=== PATIENT | female | born 1975 | race Caucasian/White ===

== ENCOUNTER → 2017-03-09 02:54 | Emergency (ER) | payer BC ==
[2017-03-09 03:24] VITALS: BP 126/69
[2017-03-09 04:01] LABS: Manual Entry Verification ROB0080; UR Preg Internal Control QC Line Present
[2017-03-09 05:09] LABS: Urine Bacteria Absent (Absent); Urine Bilirubin Negative (Negative); Urine Glucose Negative (Negative); Urine Nitrite Negative (Negative)
--- NOTE | 2017-03-09 05:50 | ED ---
Soren Bright Michael, scribed for Aldair Hanson MD on 03/09/17 at 0516 . GI/ HPI - HPI Summary HPI Summary: 42 y/o female comes to the ED presenting with vaginal pain that started 2 days ago after having intercourse. The pt reports that that pain has persistently worsened since the onset. The vaginal pain is described as burning. She also c/ o vaginal discharge that started one day ago. The pain is not alleviated with Monistat. - History of Current Complaint Chief Complaint: EDUrogenitalProblems Stated Complaint: VAG PAIN Hx Obtained From: Patient, Medical Records Onset/Duration: Started Days Ago, Still Present Timing: Constant Severity: Mild Current Severity: Moderate Pain Intensity: 8 Location of Pain: Suprapubic - vaginal Pain Characteristics: Burning Associated Signs and Symptoms: Positive: Other: - vaginal pain Additional Signs & Symptoms: Positive: Vaginal Discharge Aggravating Factor(s): Nothing Alleviating Factor(s): Nothing - Allergy/Home Medications Allergies/Adverse Reactions: Allergies Allergy/AdvReac Type Severity Reaction Status Date / Time Penicillins Allergy Unknown Verified 03/09/17 03:17 Reaction Details PMH/Surg Hx/FS Hx/Imm Hx Endocrine/Hematology History: Reports: Hx Thyroid Disease - hypothyroid Psychiatric History: Reports: Hx Anxiety - Cancer History Hx Chemotherapy: No Hx Radiation Therapy: No - Surgical History Surgery Procedure, Year, and Place: c section 1997 - Immunization History Date of Tetanus Vaccine: utd Date of Influenza Vaccine: utd Infectious Disease History: No Infectious Disease History: Reports: Hx Shingles - Age 22 yrs Denies: Hx Clostridium Difficile, Hx Hepatitis, Hx Human Immunodeficiency Virus (HIV), Hx of Known/Suspected MRSA, Hx Tuberculosis, Hx Known/Suspected VRE , Hx Known/Suspected VRSA, History Other Infectious Disease, Traveled Outside the [place] in Last 30 Days - Family History Known Family History: Positive: Hypertension, Diabetes - Social History Occupation: Employed Full-time Lives: With Family Alcohol Use: None Substance Use Type: Reports: None Smoking Status (MU): Light Every Day Tobacco Smoker Amount Used/How Often: 2-3 ciggeretts a day Review of Systems Negative: Fever Positive: other - vaginal pain. vaginal discharge. All Other Systems Reviewed And Are Negative: Yes Physical Exam Triage Information Reviewed: Yes Vital Signs On Initial Exam: Initial Vitals Temp Pulse Resp BP Pulse Ox 98.7 F 98 16 126/69 97 03/09/17 03:13 03/09/17 03:13 03/09/17 03:13 03/09/17 03:13 03/09/17 03:13 Vital Signs Reviewed: Yes Appearance: Positive: Well-Appearing, No Pain Distress Skin: Positive: Warm Head/Face: Positive: Normal Head/Face Inspection Eyes: Positive: DANA ENT: Positive: Hearing grossly normal Neck: Positive: Supple Respiratory/Lung Sounds: Positive: Clear to Auscultation, Breath Sounds Present Cardiovascular: Positive: RRR Abdomen Description: Positive: Nontender, Soft Bowel Sounds: Positive: Present Pelvic Exam: Positive: no cerv. motion tender, no masses, active bleeding, discharge - mild white, other - mild ext labial swelling Musculoskeletal: Positive: Strength/ROM Intact Neurological: Positive: Alert, Oriented to Person Place, Time - Oscar Coma Scale Coma Scale Total: 15 Diagnostics - Vital Signs Vital Signs Temp Pulse Resp BP Pulse Ox 03/09/17 03:13 98.7 F 98 16 126/69 97 - Laboratory Lab Results: Lab Results 03/09/17 Range/Units 03:30 Urine Color Yellow Urine Appearance Clear Urine pH 7.0 (5-9) Ur Specific Peak 1.023 (1.010-1.030) Urine Protein Negative (Negative) Urine Ketones Trace H (Negative) Urine Blood Negative (Negative) Urine Nitrate Negative (Negative) Urine Bilirubin Negative (Negative) Urine Urobilinogen Negative (Negative) Ur Leukocyte Esterase Trace H (Negative) Urine WBC (Auto) Trace(0-5/hpf) (Absent) Urine RBC (Auto) Absent (Absent) Ur Squamous Epith Cells Present H (Absent) Amorphous Crystals Present H (Absent) Urine Bacteria Absent (Absent) Urine Glucose Negative (Negative) Urine Ascorbic Acid Not Reportable Urine Test Negative (Negative) Lab Statement: Any lab studies that have been ordered have been reviewed, and results considered in the medical decision making process. GIGU Course/Dx - Diagnoses Provider Diagnoses: Vaginal discharge Discharge - Discharge Plan Condition: Stable Disposition: HOME Prescriptions: Clotrimazole 1% VAGINAL CREAM* [Gyne-Lotrimin 1% VAGINAL CREAM*] 1 applic VAGINAL DAILY #3 tube Patient Education Materials: Vaginal Discharge (ED) Referrals: Christin Mancia MD [Primary Care Provider] - Additional Instructions: Please follow up with Dr. Mancia within the next 2-3 days. The documentation as recorded by the morenaibSoren miller Michael accurately reflects the service I personally performed and the decisions made by me, Aldair Hanson MD.
== END | disposition home or self-care (01) ==
LOC: ED 02:54
DX: N89.8 Other specified noninflammatory disorders of vagina (principal); R10.2 Pelvic and perineal pain
CPT/HCPCS: 81003; 81015; 81025; 87086; 87480; 87491; 87510; 87591; 87661; 99282

== ENCOUNTER 2018-10-16 08:07 | Emergency (ER) | payer BC ==
[2018-10-16 08:31] VITALS: BP 139/88
--- NOTE | 2018-10-16 08:42 | UC ---
Nausea/Vomiting/Diarrhea HPI - HPI Summary HPI Summary: 43-year-old woman comes to clinic with a chief complaint of 3 days of nausea vomiting diarrhea. Has had some chills but no measured fevers at home. She gets abdominal cramping that then is relieved either by vomiting or diarrhea. No abdominal pain at this time. No blood seen in the vomit or the diarrhea. She felt like she was getting better but then she got nauseous again this morning started vomiting. She has not tried any [id number] nausea remedies. - History of Current Complaint Chief Complaint: UCGI Stated Complaint: VOMITING x3 DAYS Time Seen by Provider: 10/16/18 08:16 Hx Last Menstrual Period: HAS AN IUD, DOES NOT HAVE REG PERIODS Pain Intensity: 0 - Allergies/Home Medications Allergies/Adverse Reactions: Allergies Allergy/AdvReac Type Severity Reaction Status Date / Time Penicillins Allergy Unknown Unknown Verified 10/16/18 08:19 Reaction Details Home Medications: Home Medications Levonorgestrel (Iud) [Liletta IUD] 0 mcg 10/16/18 [History] PMH/Surg Hx/FS Hx/Imm Hx Previously Healthy: Yes Endocrine History: Hypothyroidism - Surgical History Surgical History: Yes Surgery Procedure, Year, and Place: c section 1997 - Family History Known Family History: Positive: Hypertension, Diabetes - Social History Alcohol Use: Rare Substance Use Type: None Smoking Status (MU): Light Every Day Tobacco Smoker Amount Used/How Often: 1 CIG A DAY Have You Smoked in the Last Year: Yes - Immunization History Most Recent Influenza Vaccination: august 2015 Review of Systems All Other Systems Reviewed And Are Negative: Yes Constitutional: Positive: Chills Skin: Positive: Negative Eyes: Positive: Negative ENT: Positive: Negative Respiratory: Positive: Negative Cardiovascular: Positive: Negative Gastrointestinal: Positive: Abdominal Pain, Vomiting, Diarrhea, Nausea Genitourinary: Positive: Negative Motor: Positive: Negative Neurovascular: Positive: Negative Musculoskeletal: Positive: Negative Neurological: Positive: Negative Psychological: Positive: Negative Is Patient Immunocompromised?: No Physical Exam Triage Information Reviewed: Yes Appearance: Well-Appearing, No Pain Distress, Well-Nourished Vital Signs: Initial Vital Signs Temp 97.6 F 10/16/18 08:21 Pulse 107 10/16/18 08:21 Resp 20 10/16/18 08:21 BP 139/88 12/19/18 08:21 Pulse Ox 97 10/16/18 08:21 Vital Signs Reviewed: Yes Eye Exam: Normal Eyes: Positive: Conjunctiva Clear ENT: Positive: Pharynx normal, TMs normal Neck exam: Normal Neck: Positive: Supple Respiratory: Positive: Lungs clear, Normal breath sounds, No respiratory distress Cardiovascular: Positive: RRR Abdomen Description: Positive: Nontender, Soft Bowel Sounds: Positive: Present Musculoskeletal Exam: Normal Musculoskeletal: Positive: Strength Intact, ROM Intact Neurological Exam: Normal Neurological: Positive: Alert, Muscle Tone Normal Psychological Exam: Normal Psychological: Positive: Age Appropriate Behavior Skin Exam: Normal Naus/Vom/Diarrhea Course/Dx - Course Course Of Treatment: Patient has no abdominal pain here in clinic today. The pain comes and goes and is cramping and is not localized. The plan at this time is to treat with Zofran and then if anything gets worse she needs to get reevaluated. Also she does not improved she needs to reevaluated. - Differential Dx/Diagnosis Provider Diagnosis: Nausea vomiting and diarrhea Condition At Discharge: Stable Discharge - Sign-Out/Discharge Documenting (check all that apply): Patient Departure All imaging exams completed and their final reports reviewed: No Studies - Discharge Plan Condition: Stable Disposition: HOME Prescriptions: Ondansetron ODT TAB* [Zofran 4 MG Odt TAB*] 4 mg PO Q6H PRN #10 tab.odt PRN Reason: Nausea Patient Education Materials: Acute Nausea and Vomiting (ED), Acute Diarrhea (ED ) Forms: *Work Release Referrals: Aly Calvin MD [Primary Care Provider] - Additional Instructions: FOLLOW UP WITH YOUR DOCTOR IF NOT COMPLETELY IMPROVED. GET RECHECKED FOR ANY WORSENING OF YOUR CONDITION; PAIN, FEVER, YOUR FEEL ILL, DEHYDRATION OR QUESTIONS OR CONCERNS. - Billing Disposition and Condition Condition: STABLE Disposition: Home
== END 2018-10-16 08:45 | disposition home or self-care (01) ==
LOC: UCCORT 08:07
DX: R11.2 Nausea with vomiting, unspecified (principal); R19.7 Diarrhea, unspecified; Z88.0 Allergy status to penicillin; F17.210 Nicotine dependence, cigarettes, uncomplicated
CPT/HCPCS: 99212; G0463

== ENCOUNTER 2018-10-21 14:27 | Emergency (ER) | payer BC ==
[2018-10-21 16:13] VITALS: BP 138/87
--- NOTE | 2018-10-21 16:42 | UC ---
Nausea/Vomiting/Diarrhea HPI - HPI Summary HPI Summary: OVER A WEEK OF NAUSEA, VOMITING AND WATERY STOOLS. HAD FEVER TMAX 103. OF THIS MORNING FEVER IS GONE. NO VOMITING FOR THE PAST 3 DAYS. STILL FEELS A BIT TIRED AND ACHY BUT OVERALL MUCH IMPROVED. WAS WONDERING ABOUT RETURN TO WORK. WAS ALSO WONDERING IF SHE COULD BE . HAS IUD BUT WOULD LIKE TO BE TESTED ANYWAY. - History of Current Complaint Chief Complaint: UCGeneralIllness Stated Complaint: NAUSEA,CHILLS,BODY ACHES Time Seen by Provider: 10/21/18 16:12 Hx Obtained From: Patient Hx Last Menstrual Period: HAS AN IUD, DOES NOT HAVE REG PERIODS Onset/Duration: Gradual Onset, Lasting Days, Still Present - BUT BETTER Timing: Constant Severity Initially: Moderate Severity Currently: Mild Pain Intensity: 0 Pain Scale Used: 0-10 Numeric Location: Diffuse Character: Cramping Aggravating Factor(s): Nothing Alleviating Factor(s): Spontaneous Resolution Nausea/Vomiting Presence: Nauseated, Vomiting Nausea/Vomiting Duration: 3-7 days Vomiting Characteristics: Nonbilious Diarrhea Presence: Yes Diarrhea Characteristics: Watery - Allergies/Home Medications Allergies/Adverse Reactions: Allergies Allergy/AdvReac Type Severity Reaction Status Date / Time Penicillins Allergy Unknown Unknown Verified 10/16/18 08:19 Reaction Details Home Medications: Home Medications Venlafaxine ER (NF) [Effexor ER (NF)] 150 mg PO DAILY 10/21/18 [History Confirmed 10/21/18] PMH/Surg Hx/FS Hx/Imm Hx Endocrine History: Hypothyroidism Psychological History: Anxiety - Surgical History Surgical History: Yes Surgery Procedure, Year, and Place: c section 1997 - Family History Known Family History: Positive: Hypertension, Diabetes - Social History Alcohol Use: Rare Substance Use Type: None Smoking Status (MU): Light Every Day Tobacco Smoker Amount Used/How Often: 1 CIG A DAY Have You Smoked in the Last Year: Yes - Immunization History Most Recent Influenza Vaccination: august 2015 Review of Systems All Other Systems Reviewed And Are Negative: Yes Constitutional: Positive: Fever, Fatigue ENT: Positive: Negative Respiratory: Positive: Negative Cardiovascular: Positive: Negative Gastrointestinal: Positive: Vomiting, Diarrhea, Nausea Genitourinary: Positive: Negative Physical Exam Triage Information Reviewed: Yes Appearance: Well-Appearing, No Pain Distress, Well-Nourished Vital Signs: Initial Vital Signs Temp 98.3 F 10/21/18 16:11 Pulse 108 10/21/18 16:11 Resp 18 10/21/18 16:11 BP 138/87 10/21/18 16:11 Pulse Ox 97 10/21/18 16:11 Laboratory Tests 10/21/18 10/21/18 16:26 16:28 POC Urine Color Yellow POC Urine Clarity Clear POC Urine pH 7.5 POC Ur Specif [place] 1.015 POC Urine Protein Negative POC Ur Glucose (UA) Negative POC Urine Ketones Negative POC Urine Blood Negative POC Urine Nitrite Negative POC Urine Bilirubin Negative POC Urine Urobilinogen 0.2 POC U Leukocyte Esteras Negative POC Ur Test Negative Vital Signs Reviewed: Yes Eyes: Positive: Conjunctiva Clear ENT: Positive: Hearing grossly normal, Pharynx normal, TMs normal Neck: Positive: Supple, Nontender, No Lymphadenopathy Respiratory Exam: Normal Cardiovascular Exam: Normal Abdomen Description: Positive: Nontender, Soft Musculoskeletal: Positive: No Edema Neurological: Positive: Alert Psychological: Positive: Age Appropriate Behavior Skin: Negative: Rashes Naus/Vom/Diarrhea Course/Dx - Differential Dx/Diagnosis Provider Diagnosis: Gastroenteritis Condition At Discharge: Stable Discharge - Sign-Out/Discharge Documenting (check all that apply): Patient Departure All imaging exams completed and their final reports reviewed: No Studies - Discharge Plan Condition: Stable Disposition: HOME Patient Education Materials: Gastroenteritis (ED) Forms: *Work Release Referrals: Aly Calvin MD [Primary Care Provider] - If Needed Additional Instructions: YOUR SYMPTOMS ARE IMPROVING. CONTINUE CONSERVATIVE MANAGEMENT. BE SURE TO STAY WELL-HYDRATED. YOU CAN CONTINUE TO USE THE ZOFRAN NEEDED FOR NAUSEA. NO FURTHER INTERVENTION INDICATED TODAY. - Billing Disposition and Condition Condition: STABLE Disposition: Home
== END 2018-10-21 16:50 | disposition home or self-care (01) ==
LOC: UCCORT 14:27
DX: K52.9 Noninfective gastroenteritis and colitis, unspecified (principal); Z88.0 Allergy status to penicillin; F41.9 Anxiety disorder, unspecified; F17.210 Nicotine dependence, cigarettes, uncomplicated
CPT/HCPCS: 81003; 84702; 99212; G0463

== ENCOUNTER 2018-10-28 21:32 | Emergency (ER) | payer BC ==
[2018-10-28] MEDS ORDERED: Albuterol/Ipratropium NEB.SOL* Albuterol 2.5 MG/Ipratropium 0.5 MG 3 ML INH ONE (21:34)
--- OUTSIDE RECORDS SUMMARY | 2018-10-28 21:39 | XMS REPORT | Continuity of Care Document ---
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 Aly Calvin MD Primary Care Physician Unavailable Payers Type Date Identification Numbers Payment Provider Subscriber Policy Number: [id number] [facility] Paul Phil FOSTER Group Name: [facility] [address] [address] PayID: [id number] [place] [address] Advance Directives Description No Information Available Problems Date Description Provider Status Onset: 12/19/2011 Single major depressive episode Anamaria Barros FNP Active Onset: 12/19/2011 Anxiety state Anamaria Barros FNP Active Onset: 12/19/2011 Benign essential hypertension Anamaria Barros FNP Active Onset: 12/19/2011 Hypothyroidism Anamaria Barros FNP Active Onset: 12/19/2011 Obesity Anamaria Barros FNP Active Onset: 05/08/2018 Malaise and fatigue Jeb Fernandez MD Active Onset: 05/08/2018 Nausea and vomiting Jeb Fernandez MD Active Family History Date Family Member(s) Problem(s) Comments General Non Contributory Father Diabetes Mellitus Type 2 Mother bariatric surgery Mother pelvic cancer (?uterine) Mother Diabetes Mellitus Type 2 First Son mild autism First Son tourette's First Brother bariatric surgery Social History Type Date Description Comments Sex Unknown Marital Status Lives With Lives With Son Home Environment Lives With FAMILY Diet Healthy, Well Balanced Occupation Currently Working Tobacco Use Start: Unknown End: Former Cigarette Smoker Smoked for less Unknown 1-5 Cigarettes Daily than 6 years Smoking Status Reviewed: 10/28/18 Former Cigarette Smoker Smoked for less 1-5 Cigarettes Daily than 6 years Smokeless Tobacco Never Used Smokeless Tobacco ETOH Use Occasionally consumes alcohol Tobacco Use Start: Unknown End: Patient is a former Unknown smoker Recreational Drug Use Never Used Drugs Exercise Type/Frequency Does not exercise Allergies, Adverse Reactions, Alerts Date Description Reaction Status Severity Comments 02/11/2015 Penicillin Active 01/05/2012 Cats Active Medications Medication Date Status Form Strength Qnty SIG Indications Ordering Provider Benzonatate 10/28 Active Capsules 200mg 30cap take 1 J20.9 Kheti, s capsule 3 MD Juve times daily as needed for a cough. Omeprazole 05/08 Active Capsules 20mg 90cap 1 tab by R11.2 s mouth every MD Jim day every morning Vitamin D 06/25 Active Capsules [id number] 12cap Take One Kushal (Ergocalciferol) s Capsule By MD Ping Mouth Once Every Week Effexor XR 03/15 Active Caps ER 150mg 90cap Take One 24HR s Capsule By Sim Waller Every M.D. 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 03/03 se pack Ventolin HFA 02/26 Hx Aerosol 108(90Bas 18gm 2 puffs J20.9 e) every 4 Christin - mcg/Act hours as M.DAreli 03/08 needed for cough and wheeze Fluconazole 03/09 Hx Tablets 150mg 1tabs 1 by mouth by Christin queen, - repeat in M.D. 02/26 one week not improved Medroxyprogesteron 03/01 Hx Tablets 10mg 10tab 1 tab by N92.1 paul Mancia s mouth every Christin, - daily for M.D. 02/26 Work 02/20 Hx Cassidy february Jolene return to [facility] - work with MD 02/21 restriction s. Work 02/16 Hx Cassidy february Jolene not work [facility] - 02/18/16. MD 02/21 reevaluate on 02/21/16. Vitamin D 10/19 Hx Capsules [id number] 12cap take one Kushal, (Ergocalciferol) s capsule by MD Ping - mouth every Effexor XR 02/11 Hx Caps ER 75mg 180ca 2 by mouth Jolene 24HR ps every day Daniela Zamudio MD 03/15 Ergocalciferol 11/17 Hx Capsules [id number] 12cap 1 po q week Lamas, s Clarissa Zamudio MD 10/19 Effexor XR 03/13 Hx Caps ER 37.5mg 90cap 1 by mouth Jolene 24HR s every day Daniela Zamudio MD 02/11 Cetirizine HCL Hx Tablets 10mg 90tab 1 po qd Jolene, s Daniela Zamudio MD 03/15 Xanax Hx Tablets 0.5mg 1 by mouth Unknown / morning of - procedure 02/12 one hour before starting; february repeat x 1 Trazodone HCL 0000 Hx Tablets 100mg 30tab 1 by mouth Jolene, /0000 s at bedtime Daniela Zamudio MD 02/20 Clonazepam 0000 Hx Tablets 0.5mg 30tab 1 by mouth Jolene, /0000 s three times Daniela - a day. ref MD 02/26 # [id number] Immunizations CPT Code Status Date Vaccine Lot # [id number] Given 07/20/2016 Tdap injection [id number] Vital Signs Date Vital Result Comment 10/28/2018 11:30am BP Systolic Sitting Left Arm 128 mmHg BP Diastolic Sitting Left Arm 88 mmHg Heart Rate 120 /min Respiratory Rate 18 /min Height 61 inches 5'1" Weight 261.00 lb BMI (Body Mass Index) 49.3 kg/m2 BSA (Body Surface Area) 2.12 m2 [place] body weight in kilograms 48 kg O2 % BldC Oximetry 97 % 10/24/2018 3:16pm BP Systolic 140 mmHg BP Diastolic 84 mmHg Body Temperature 98.9 F Heart Rate 100 /min Respiratory Rate 18 /min Height 61 inches 5'1" Weight 247.00 lb BMI (Body Mass Index) 46.7 kg/m2 BSA (Body Surface Area) 2.07 m2 [place] body weight in kilograms 48 kg O2 % BldC Oximetry 96 % 05/08/2018 11:17am BP Systolic Sitting Left Arm 142 mmHg BP Diastolic Sitting Left Arm 80 mmHg Heart Rate 82 /min Respiratory Rate 18 /min Height 61 inches 5'1" [place] body weight in kilograms 48 kg O2 % BldC Oximetry 98 % 02/26/2018 10:03am BP Systolic Sitting Right Arm 122 mmHg BP Diastolic Sitting Right Arm 70 mmHg Body Temperature 98.4 F Heart Rate 105 /min Weight 239.25 lb O2 % BldC Oximetry 95 % 03/01/2017 8:39am BP Systolic Sitting Left Arm 120 mmHg BP Diastolic Sitting Left Arm 86 mmHg Body Temperature 99.4 F Heart Rate 97 /min Weight 198.25 lb O2 % BldC Oximetry 99 % 01/16/2017 4:46pm BP Systolic Sitting Left Arm 154 mmHg BP Diastolic Sitting Left Arm 82 mmHg Height 64 inches 5'4" Weight 201.00 lb BMI (Body Mass Index) 34.5 kg/m2 BSA (Body Surface Area) 1.96 m2 [place] body weight in kilograms 54 kg 08/29/2016 10:36am BP Systolic 132 mmHg BP Diastolic 90 mmHg BP Systolic Sitting Left Arm 138 mmHg BP Diastolic Sitting Left Arm 92 mmHg 02/21/2016 2:13pm BP Systolic Sitting Left Arm 114 mmHg BP Diastolic Sitting Left Arm 72 mmHg Weight 214.00 lb Last Menstrual Period [id number] 02/17/2016 6:39pm BP Systolic 148 mmHg BP Diastolic 92 mmHg Height 62 inches 5'2" Weight 214.00 lb BMI (Body Mass Index) 39.1 kg/m2 BSA (Body Surface Area) 1.97 m2 02/10/2016 11:13am BP Systolic Sitting Left Arm 138 mmHg BP Diastolic Sitting Left Arm 76 mmHg Heart Rate 72 /min Respiratory Rate 19 /min Height 62 inches 5'2" Weight 214.00 lb BMI (Body Mass Index) 39.1 kg/m2 BSA (Body Surface Area) 1.97 m2 Last Menstrual Period [id number] 11/11/2015 3:52pm BP Systolic 140 mmHg BP Diastolic 78 mmHg Height 62 inches 5'2" Weight 217.38 lb BMI (Body Mass Index) 39.8 kg/m2 BSA (Body Surface Area) 1.98 m2 Last Menstrual Period [id number] 06/17/2015 4:35pm BP Systolic 102 mmHg BP Diastolic 62 mmHg Height 64 inches 5'4" Weight 197.50 lb BMI (Body Mass Index) 33.9 kg/m2 BSA (Body Surface Area) 1.95 m2 03/15/2015 4:15pm BP Systolic 126 mmHg BP Diastolic 74 mmHg Height 63 inches 5'3" Weight 218.00 lb BMI (Body Mass Index) 38.6 kg/m2 BSA (Body Surface Area) 2.01 m2 02/11/2015 10:43am BP Systolic Sitting Left Arm 124 mmHg BP Diastolic Sitting Left Arm 80 mmHg Height 64.5 inches 5'4.50" Weight 222.00 lb BMI (Body Mass Index) 37.5 kg/m2 BSA (Body Surface Area) 2.06 m2 11/17/2014 3:48pm BP Systolic 130 mmHg BP Diastolic 74 mmHg Height 63 inches 5'3" Weight 270.00 lb 09/24/2013 6:06pm BP Systolic 138 mmHg BP Diastolic 80 mmHg Height 63 inches 5'3" Weight 255.00 lb 04/11/2013 1:11pm BP Systolic 118 mmHg BP Diastolic 78 mmHg Heart Rate 72 /min Height 63 inches 5'3" Weight 249.00 lb 03/13/2013 11:33am BP Systolic 102 mmHg BP Diastolic 72 mmHg Height 63 inches 5'3" Weight 254.00 lb 08/14/2012 6:01pm BP Systolic 128 mmHg BP Diastolic 78 mmHg Height 63 inches 5'3" Weight 248.00 lb 01/05/2012 10:57am BP Systolic 110 mmHg BP Diastolic 78 mmHg Height 63 inches 5'3" Weight 238.00 lb Results Test Date Facility Test Result H/L Range Note Comprehensive Metabolic 10/24/2018 [facility] Glucose 84 mg/dL N 74-106 [address] [place] [address] [phone] BUN 14 mg/dL N 7-18 Creatinine 0.7 mg/dL N 0.6-1.3 Glom Filtration Rate, Estimate >60 mL/min >60 If >60 mL/min >60 2 BUN/Creat 20.0 ratio Sodium 137 mmol/L N 136-145 Potassium 4.1 mmol/L N 3.5-5.1 Chloride 104 mmol/L N 98-107 Carbon Dioxide 27 mmol/L N 21-32 Anion Gap 6 mEq/L Low 8-16 Calcium 8.5 mg/dL N 8.5-10.1 Total Protein 7.0 g/dL N 6.4-8.2 Albumin 3.4 g/dL N 3.4-5.0 Globulin 3.6 g/dL N 1.9-4.3 Alb/Glob 0.9 ratio Bilirubin,Total 0.2 mg/dL N 0.2-1.0 Sgot/Ast 15 U/L N 15-37 SGPT/Alt 37 U/L N 12-78 Alkaline Phosphatase 48 U/L N 45-117 CBC W/Automated Diff 10/24/2018 [facility] White Blood 9.5 K/uL N 3.1-10.[address] [place] [address] [phone] Red Blood Count 5.00 M/uL N 3.90-5.40 Hemoglobin 13.9 gm/dL N 11.6-15.8 Hematocrit 42.2 % N 36.0-46.1 Mean Cell Volume 84.4 fl N 80.9-99.0 Mean Corpuscular HGB 27.8 pg N 25.9-32.7 Mean Corpuscular HGB Conc 32.9 g/dL N 30.8-34.3 Platelet Count 263 K/uL N 155-360 Red Cell Distri Width SD 43.7 fl N 36-47 Red Cell Distri Width %CV 14.5 % High 11.7-14.4 Mean Platelet Volume 10.8 fL N 8.9-12.4 Neut% 62.3 % N 40.4-72.8 Lymph % 25.2 % N 20.0-42.0 Hall % 10.2 % N 4.3-13.2 Eo% 2.1 % N 0.0-6.6 Bas% 0.2 % N 0.0-1.1 Neut# 5.90 K/uL N 1.8-7.0 Lymph # 2.39 K/uL N 1.0-4.0 Hall # 0.97 K/uL High 0.3-0.9 Eos # 0.20 K/uL N 0.0-0.5 Baso # 0.02 K/uL N 0.0-0.1 Laboratory test 10/24/2018 [facility] C-Reactive 7.0 mg/L High <3.0 finding [address] [place] [address] [phone] Ua RFX Micro & 10/24/2018 [facility] Urine Color YELLOW Yellow 3 Culture II [address] [place] [address] [phone] Urine Clarity CLEAR Clear Urine Glucose - Dipstick NEGATIVE mg/dL Negative Urine Bilirubin - Dipstick NEGATIVE Negative Urine Ketone NEGATIVE mg/dL Negative Urine Specific [place] 1.010 N 1.010-1.030 Urine Blood LARGE Abnormal Negative Urine PH 7.5 N 6.5-7.5 Urine Protein - Dipstick TRACE mg/dL Negative Urine Urobilinogen - Dipstick 1.0 E.U./dL N 0.2-1.0 Urine Nitrite - Dipstick NEGATIVE Negative Urine Leuk Esterase NEGATIVE Negative Urine RBC 2-5 rbc/hpf 0-2 Urine WBC 0-2 wbc/hpf 0-7 Urine Epithelial Cells VERY FEW /lpf None Seen Urine Bacteria VERY FEW None Seen Source: URINE, CLEAN CAT <SEE NOTE> 4 Urine Culture 10/24/2018 [facility] Urine Culture URETHRAL RAMIRO [address] [place] [address] [phone] Quantity 10,000 - 50,000 <SEE NOTE> 5 Laboratory test 10/21/2018 [facility] Poc , Negative Negative 6 finding [phone] Urine Poc Urinalysis 10/21/2018 [facility] Poc Glucose, Negative Negative [phone] Urine Poc Bilirubin, Urine Negative Negative Poc Ketone, Urine Negative Negative Poc Specific [place], Urine 1.015 N 1.010-1.030 Poc Blood, Urine Negative Negative Poc pH, Urine 7.5 N 5-9 Poc Protein, Urine Negative Negative Poc Urobilinogen, Urine 0.2 Negative Poc Nitrite, Urine Negative Negative Poc Leukocytes, Urine Negative Negative Poc Color, Urine Yellow Poc Clarity, Urine Clear 7 Laboratory 07/25/2017 [facility] Urine HCG NEGATIVE Negative 8, 9 test finding [address] (Qualitative) [place], [place] [id number] [phone] Ua Routine 07/17/2017 [facility] Urine Color ORANGE Yellow [address] [place], [place] [id number] [phone] Urine Clarity CLEAR Clear Urine Glucose - Dipstick NEGATIVE mg/dL Negative Urine Bilirubin - Dipstick NEGATIVE Negative Urine Ketone NEGATIVE mg/dL Negative Urine Specific [place] 1.020 N 1.010-1.030 Urine Blood LARGE Abnormal Negative Urine PH 6.0 Low 6.5-7.5 Urine Protein - Dipstick NEGATIVE mg/dL Negative Urine Urobilinogen - Dipstick 0.2 E.U./dL N 0.2-1.0 Urine Nitrite - Dipstick NEGATIVE Negative Urine Leuk Esterase NEGATIVE Negative Urine RBC >50 rbc/hpf High 0-2 Urine WBC NONE SEEN wbc/hpf 0-7 Urine Epithelial Cells VERY FEW /lpf None Seen Urine Uric Acid Crystals FEW None Seen Source: URINE, CLEAN CAT <SEE NOTE> 11 Urine Culture 07/17/2017 [facility] Urine Culture NO GROWTH: [address] FINAL <[place] [address] NOTE> [phone] Laboratory test 03/09/2017 [facility] Urine Culture SEE RESULT 13 finding [phone] BELOW Laboratory test 03/09/2017 [facility] Gardnerella/Yea SEE RESULT 14 finding [phone] st: Vaginal Dna BELOW GC/Chlamydia 03/09/2017 [facility] Chlamydia Negative N Negative Amplified Rna [phone] trachomatis Rna Neisseria gonorrhoeae (GC) Rna Negative N Negative Laboratory test 03/09/2017 [facility] Trichomonas Negative N Negative 15 finding [phone] vaginalis Rna Laboratory test 03/09/2017 [facility] Urine Negative N Negative 16 finding [phone] Urinalysis 03/09/2017 [facility] Urine Color Yellow N Profile [phone] Urine Appearance Clear N Urine Specific [place] 1.023 N 1.010-1.030 Urine pH 7.0 N 5-9 Urine Urobilinogen Negative N Negative Urine Ketones Trace Abnormal Negative Urine Protein Negative N Negative Urine Leukocytes Trace Abnormal Negative Urine Blood Negative N Negative Urine Nitrite Negative N Negative Urine Bilirubin Negative N Negative Urine Glucose Negative N Negative Urine White Blood Cell Trace(0-5/hpf) N Absent Urine Red Blood Cell Absent N Absent Urine Bacteria Absent N Absent Urine Squamous Epithelial Cell Present Abnormal Absent Urine Amorphous Crystals Present Abnormal Absent CBS W/Automated 03/01/2017 [facility] White Blood 6.7 K/uL N 3.1-10.7 [address] Count [place], [place] [id number] [phone] Red Blood Count 4.88 M/uL N 3.90-5.40 Hemoglobin 13.9 gm/dL N 11.6-15.8 Hematocrit 42.5 % N 36.0-46.1 Mean Cell Volume 87.1 fl N 80.9-99.0 Mean Corpuscular HGB 28.5 pg N 25.9-32.7 Mean Corpuscular HGB Conc 32.7 g/dL N 30.8-34.3 Platelet Count 246 K/uL N 150-400 Red Cell Distri Width SD 45.3 fl N 3-47 Red Cell Distri Width %CV 14.5 % High 11.7-14.4 Mean Platelet Volume 11.5 fL N 8.9-12.4 Neut% 66.8 % N 40.4-72.8 Lymph % 24.9 % N 20.0-42.0 Hall % 6.4 % N 4.3-13.2 Eo% 1.5 % N 0.0-6.6 Bas% 0.4 % N 0.0-1.1 Neut# 4.46 K/uL N 1.8-7.0 Lymph # 1.66 K/uL N 1.0-4.0 Hall # 0.43 K/uL N 0.3-0.9 Eos # 0.10 K/uL N 0.0-0.5 Baso # 0.03 K/uL N 0.0-0.1 Laboratory test finding 03/01/2017 [facility] FSH 14.6 mIU/mL [address] [place], [place] [id number] [phone] Luteinizing Hormone 5.5 mIU/mL 19 Protime 03/01/2017 [facility] Protime 12.6 seconds N 12.0-14.[address] [place] [address] [phone] Inr 1.0 N 0.9-1.1 20 Laboratory test 03/01/2017 [facility] Act Partial 27.4 seconds N 23.4-35.[address] Thrombo Time [place], [place] [id number] [phone] Prolactin 6.8 ng/mL 21 Testosterone, Women/Child 25 ng/dL . 22 HPV High Risk 03/01/2017 [facility] HPV High Results on [address] [place] [place] [address] [phone] Comprehensive 01/16/2017 [facility] Glucose 84 mg/dL N 74-1 25 Metabolic Panel [address] [place] [address] [phone] BUN 13 mg/dL N 7-18 Creatinine 0.7 mg/dL N 0.6-1.3 Glom Filtration Rate, Estimate >60 mL/min >60 If >60 mL/min >60 26 BUN/Creat 18.5 ratio Sodium 141 mmol/L N 136-145 Potassium 3.6 mmol/L N 3.5-5.1 Chloride 104 mmol/L N 98-107 Carbon Dioxide 28 mmol/L N 21-32 Anion Gap 9 mEq/L N 8-16 Calcium 8.7 mg/dL N 8.5-10.1 Total Protein 7.3 g/dL N 6.4-8.2 Albumin 4.0 g/dL N 3.4-5.0 Globulin 3.3 g/dL N 1.9-4.3 Alb/Glob 1.2 ratio Bilirubin,Total 0.3 mg/dL N 0.2-1.0 Sgot/Ast 11 U/L Low 15-37 27 SGPT/Alt 27 U/L N 12-78 Alkaline Phosphatase 44 U/L Low 45-117 Reflex add FT3? Y Reflex add FT4? Y Glycohemoglobin A1c 01/16/2017 [facility] Glycohemoglobin 5.5 % N 4.2-6.[address] (A1c) [place] [address] [phone] eAG 111 mg/dL LDL Cholesterol Profile 01/16/2017 [facility] Cholesterol 194 mg/dL <[address] [place], [place] [id number] [phone] Triglycerides 87 mg/dL <150 30 HDL Cholesterol 59 mg/dL >40 31 LDL-Cholesterol 118 mg/dL < 100 32 Reflex add FT3? Y Reflex add FT4? Y TSH Reflex FT4 01/16/2017 [facility] Thyroid Stim 1.10 uIU/mL N 0.30-4.20 And/Or FT3 [address] Hormone [place], [place] [id number] [phone] Reflex add FT3? Y Reflex add FT4? Y Laboratory test 01/16/2017 [facility] Vitamin 55.4 30.0-100.0 [address] D,25-Hydroxy ng/mL [place], [place] [address] [phone] Antibody Detection-Hiv1/2 SCRN Nonreactive Nonreactive 34 Hepatitis C 01/16/2017 [facility] Hepatitis C Nonreactive Nonreactive Antibody [address] [place] [address] [phone] Signal/Cutoff ratio < 0.02 <0.80 35 Laboratory test 02/10/2016 [facility] Cytology Interface SEE RESULT 36 finding [phone] Order BELOW Laboratory test 02/10/2016 [facility] Cytopathology Results on [address] Cervix/[place] [address] [phone] Laboratory test 11/11/2015 [facility] Thyroid Stim 1.59 uIU/mL 0.36- finding [address] Hormone 3.74 [place] [address] [phone] Basic Metabolic 11/11/2015 [facility] Glucose 91 mg/dL 74-[address] [place] [address] [phone] BUN 14 mg/dL 7-18 Creatinine 0.6 mg/dL 0.6-1.3 Glom Filtration Rate, Estimate >60 mL/min >60 If >60 mL/min >60 38 BUN/Creat 23.3 ratio Sodium 139 mmol/L 136-145 Potassium 3.7 mmol/L 3.5-5.1 Chloride 105 mmol/L 98-107 Carbon Dioxide 30 mmol/L 21-32 Anion Gap 4 mEq/L Low 8-16 Calcium 8.3 mg/dL Low 8.5-10.1 Glycohemoglobin A1c 11/11/2015 [facility] Glycohemoglobin 5.2 % 4.2-6.[address] (A1c) [place], [place] [id number] [phone] eAG 103 mg/dL CBC Auto Diff 02/10/2015 [facility] White Blood 9.4 10^3/uL N 4.8-10.8 [phone] Count Red Blood Count 5.12 10^6/uL N 4.0-5.4 Hemoglobin 14.4 g/dL N 12.0-16.0 Hematocrit 43 % N 35-47 Mean Corpuscular Volume 85 fL N 80-97 Mean Corpuscular Hemoglobin 28 pg N 27-31 Mean Corpuscular HGB Conc 33 g/dL N 31-36 Red Cell Distribution Width 16 % High 10.5-15 Platelet Count 221 10^3/uL N 150-450 Mean Platelet Volume 10 um3 N 7.4-10.4 Abs Neutrophils 6.8 10^3/uL N 1.5-7.7 Abs Lymphocytes 1.9 10^3/uL N 1.0-4.8 Abs Monocytes 0.5 10^3/uL N 0-0.8 Abs Eosinophils 0.1 10^3/uL N 0-0.6 Abs Basophils 0 10^3/uL N 0-0.2 Abs Nucleated RBC 0.01 10^3/uL N Granulocyte % 72.9 % N 38-83 Lymphocyte % 20.2 % Low 25-47 Monocyte % 5.8 % N 1-9 Eosinophil % 0.8 % N 0-6 Basophil % 0.3 % N 0-2 Nucleated Red Blood Cells % 0.1 N Comp Metabolic Panel 02/10/2015 [facility] Sodium 137 mmol/L N 133-145 [phone] Potassium 4.5 mmol/L N 3.5-5.0 Chloride 101 mmol/L N 101-111 Co2 Carbon Dioxide 29 mmol/L N 22-32 Anion Gap 7 mmol/L N 2-11 Glucose 92 mg/dL N 70-100 Blood Urea Nitrogen 7 mg/dL N 6-24 Creatinine 0.66 mg/dL N 0.51-0.95 BUN/Creatinine Ratio 10.6 N 8-20 Calcium 10.0 mg/dL N 8.6-10.3 Total Protein 6.8 g/dL N 6.4-8.9 Albumin 4.4 g/dL N 3.2-5.2 Globulin 2.4 g/dL N 2-4 Albumin/Globulin Ratio 1.8 N 1-3 Total Bilirubin 0.40 mg/dL N 0.2-1.0 Alkaline Phosphatase 41 U/L N 34-104 Alt 15 U/L N 7-52 Ast 11 U/L Low 13-39 Egfr Non- 98.2 N >60 Egfr 126.3 N >60 40 Laboratory test 02/10/2015 [facility] TSH (Thyroid 1.35 N 0.34-5.60 finding [phone] Stimulating IU/mL Horm) Laboratory test 11/18/2014 N2N/CCD Import ThinPrep Pap: See Note 41 finding Cervix/Endocx Laboratory test 11/13/2014 N2N/CCD Import Thyroid Stim 2.11 0.36-3.74 finding Hormone uIU/mL Vitamin D,25-Hydroxy 18.6 ng/mL Low 30.0-100.0 42 Basic Metabolic Panel 11/13/2014 N2N/CCD Import Anion Gap 9 mEq/L 8-16 BUN 12 mg/dL 7-18 BUN/Creat 17.1 ratio Calcium 8.9 mg/dL 8.5-10.1 Carbon Dioxide 28 mmol/L 21-32 Chloride 105 mmol/L 98-107 Creatinine 0.7 mg/dL 0.6-1.3 Glom Filtration Rate, Estimate >60 mL/min >60 Glucose 106 mg/dL 74-106 If >60 mL/min >60 43 Potassium 4.1 mmol/L 3.5-5.1 Sodium 138 mmol/L 136-145 CBC 11/13/2014 N2N/CCD Import Hematocrit 42.0 % 36.0-46.1 Hemoglobin 13.5 gm/dL 11.6-15.8 Mean Cell Volume 83.8 fl 80.9-99.0 Mean Corpuscular HGB 26.9 pg 25.9-32.7 Mean Corpuscular HGB Conc 32.1 g/dL 30.8-34.3 Mean Platelet Volume 11.3 fL 8.9-12.4 Platelet Count 264 K/uL 155-360 Red Blood Count 5.01 M/uL 3.90-5.40 Red Cell Distri Width %CV 14.8 % High 11.7-14.4 White Blood Count 8.2 K/uL 3.1-10.7 Glycohemoglobin A1c 11/13/2014 N2N/[facility] Import Glycohemoglobin (A1c) 6.1 % 4.2-6.3 44 eAG 128 mg/dL Liver Function Tests 11/13/2014 [employer]/[facility] Import Alb/Glob 1.0 ratio Albumin 3.6 g/dL 3.4-5.0 Alkaline Phosphatase 54 U/L 45-117 Bilirubin,Direct < 0.1 mg/dL 0.0-0.2 Bilirubin,Indirect 0.3 mg/dL 0.0-0.9 Bilirubin,Total 0.4 mg/dL 0.2-1.0 Globulin 3.5 g/dL 1.9-4.3 SGPT/Alt 39 U/L 12-78 Sgot/Ast 13 U/L Low 15-37 45 Total Protein 7.1 g/dL 6.4-8.2 LDL Cholesterol Profile 11/13/2014 [facility] Import Cholesterol 153 mg/dL < 200 46 HDL Cholesterol 32 mg/dL > 40 47 LDL-Cholesterol 87 mg/dL < 100 48 Triglycerides 170 mg/dL < 150 49 LDL Cholesterol Profile 01/02/2014 [facility] Import Cholesterol 158 mg/dL 120-200 HDL Cholesterol 33 mg/dL 29-83 LDL-Cholesterol 88 mg/dL 62-185 Triglycerides 187 mg/dL 16-231 Comprehensive Metabolic Panel 01/02/2014 [facility] Import Alb/Glob 0.9 ratio Albumin 3.6 g/dL 3.5-5.0 Alkaline Phosphatase 52 U/L 50-136 Anion Gap 9 mEq/L 8-16 BUN 13 mg/dL 5-23 BUN/Creat 18.5 ratio Bilirubin,Total 0.4 mg/dL 0.2-1.2 Calcium 9.3 mg/dL 8.5-10.1 Carbon Dioxide 29 mEq/L 18-29 Chloride 107 mmol/L 98-107 Creatinine 0.7 mg/dL 0.5-1.4 Globulin 3.8 g/dL 1.9-4.3 Glom Filtration Rate, Estimate >60 mL/min >60 Glucose 82 mg/dL 76-115 If >60 mL/min >60 50 Potassium 4.3 mmol/L 3.5-5.1 SGPT/Alt 30 U/L 30-65 Sgot/Ast 10 U/L Low 16-40 Sodium 141 mmol/L 136-145 Total Protein 7.4 g/dL 6.3-8.0 CBC W/Automated Diff 01/02/2014 N2N/CCD Import Bas% 0.3 % 0.0-1.1 Baso # 0.02 K/uL 0.0-0.1 Eo% 2.1 % 0.0-6.6 Eos # 0.16 K/uL 0.0-0.5 Hematocrit 42.1 % 36.0-46.1 Hemoglobin 13.6 gm/dL 11.6-15.8 Lymph # 2.30 K/uL 0.8-3.4 Lymph % 29.5 % 17.0-46.1 Mean Cell Volume 83.5 fl 80.9-99.0 Mean Corpuscular HGB 27.0 pg 25.9-32.7 Mean Corpuscular HGB Conc 32.3 g/dL 30.8-34.3 Mean Platelet Volume 10.9 fL 8.9-12.4 Hall # 0.50 K/uL 0.3-0.9 Hall % 6.4 % 4.3-13.2 Neut# 4.81 K/uL 1.0-7.0 Neut% 61.7 % 40.4-72.8 Platelet Count 232 K/uL 155-360 Red Blood Count 5.04 M/uL 3.90-5.40 Red Cell Distri Width %CV 14.9 % High 11.7-14.4 Red Cell Distri Width SD 44.9 fl 3-47 White Blood Count 7.8 K/uL 3.1-10.7 Laboratory test 01/02/2014 N2N/CCD Import Thyroid Stim 4.29 uIU/mL 0.49- 4.67 finding Hormone Vitamin D, 25 03/13/2013 N2N/CCD Import 25-Hydroxy 23 ng/mL 51 Hydroxy Vitamin D Total 25-Hydroxy Vitamin D2 <4.0 ng/mL 25-Hydroxy Vitamin D3 23 ng/mL Laboratory test 03/13/2013 N2N/CCD Import TSH (Thyroid 1.72 miu/mL 0.34- 5.60 finding Stimulating Horm) Vitamin B12 385 pg/mL 180-914 Laboratory test 08/12/2012 N2N/CCD Import Thyroid Stim 2.16 uIU/mL 0.49- 4.67 finding Hormone Basic Metabolic 08/12/2012 N2N/CCD Import Anion Gap 13 mEq/L 8-16 Panel BUN 23 mg/dL 5-23 BUN/Creat 32.8 ratio Calcium 8.7 mg/dL 8.5-10.1 Carbon Dioxide 24 mEq/L 18-29 Chloride 107 mmol/L 98-107 Creatinine 0.7 mg/dL 0.5-1.4 Glom Filtration Rate, Estimate >60 mL/min >60 Glucose 100 mg/dL 76-115 If >60 mL/min >60 52 Potassium 4.1 mmol/L 3.5-5.1 Sodium 140 mmol/L 136-145 LDL Cholesterol Profile 08/12/2012 N2N/CCD Import Cholesterol 167 mg/dL 120-200 HDL Cholesterol 33 mg/dL 29-83 LDL-Cholesterol 102 mg/dL 62-185 Triglycerides 158 mg/dL 16-231 Laboratory test 01/04/2012 N2N/CCD Import Hemoglobin A1c 5.6 % Less Than 6.0 53 finding TSH 3.80 MIU/ML 0.34-5.60 CBC Auto Diff 12/15/2011 N2N/CCD Import Abs Basophils 0 0-0.2 Abs Eosinophils 0 0-0.6 Abs Lymphs 2.3 1.0-4.8 Abs Mononuclear 0.5 0-0.8 Absolute Neutrophil Count 5.7 1.5-7.7 Basophil % 0.2 % 0-2 Eosinophil % 0.3 % 0-6 Gran % 66.3 % 38-83 Hematocrit 39 % 35-47 Hemoglobin 13.7 g/dL 12.0-16.0 Lymph % 27.2 % 25-47 Mean Corpuscular HGB Cone 35 g/dL 32-36 Mean Corpuscular Hemoglob 29 pg 27-31 Mean Corpuscular Volume 82 um3 79-97 Mean Platelet Volume 9.7 um3 7.4-10.4 Mononuclear % 6.0 % 1-9 Platelet Count 233 CUMM 150-450 Red Cell Count 4.77 CUMM 4.2-5.4 Redcell Distribution WDTH 14 % 10.5-15 White Blood Count 8.5 CUMM 4.8-10.8 Comp Metabolic Panel 12/15/2011 N2N/CCD Import Albumin 3.9 GM/DL 3.6- 5.4 Albumin/Globulin Ratio 1.6 1-3 Alkaline Phosphatase 49 U/L 30-110 Alt (SGPT) 21 U/L 14-54 Anion Gap 8.0 mmol/L 2-11 54 Ast (Sgot) 16 U/L 12-42 BUN 10 mg/dL 6-24 BUN/Creatinine Ratio 14.3 8-20 Bilirubin Total 0.6 mg/dL 0.4-1.5 55 Calcium 9.4 mg/dL 8.1-9.9 Chloride 103 mmol/L 101-111 Co2 (Carbon Dioxide) 29.0 mmol/L 22-32 Creatinine 0.7 mg/dL 0.50-1.40 Globulin 2.5 GM/DL 2-4 Glucose 96 mg/dL 70-100 One Over Creatinine 1.42 Potassium 4.6 mmol/L 3.5-5.0 Sodium 140 mmol/L 135-145 Total Protein 6.4 GM/DL 6.2-8.1 eGFR 120.4 > 60 56 eGFR Non- 93.6 > 60 Lipid Profile 12/15/2011 N2N/CCD Import Cholesterol 194 mg/dL Less Than 57 (Trig/Chol/HDL) 200 Cholesterol/HDL Ratio 4.97 AVERAGE High 1-4.44 High Density Lipoprotein 39 mg/dL Low 40-60 58 Low Density Lipoprotein 121 mg/dL High Less Than 100 59 Triglyceride 169 mg/dL 40-200 Liver Function 12/15/2011 N2N/CCD Import Bilirubin Direct 0.0 mg/dL Low 0.1-0.5 Panel Indirect Bilirubin (See Note) mg/dL 0.3-1.0 60 1 R11.2 2 Note: Persistent reduction for 3 months or more in an eGFR <60 mL/min/1.73 m2 defines CKD. Patients with eGFR values >/=60 mL/min/1.73 m2 may also have CKD if evidence of persistent proteinuria is present. The original MDRD equation for estimated GFR is not valid for patients less than 18 years of age. Additional information may be found at www.kdoqi.org. 3 R11.2 R11.2, M54.6 ' OK - was having vaginal bleeding that day. 4 URINE, CLEAN CATCH 5 10,000 - 50,000 CFU/mL 6 Terminal Gauger Supervisor: [id number] Test Disclaimer: Positive bacteria, red blood cells, white blood cells, early , low specific gravity, and other factors may cause false positive or negative results. It is recommended to retest unexpected results within 24 to 72 hours with a serum test when applicable. If is still suspected, please repeat test after 48 to 72 hours. 7 Terminal Gauger Supervisor: [id number] CONSULT 07/23/17 10;30 22752 9 FIRST MORNING SPECIMENS GENERALLY CONTAIN THE HIGHEST CONCENTRATION OF HCG AND ARE RECOMMENDED FOR EARLY DETECTION OF . Method: Quidel QuickVue One-Step Immunoassay 10 N92.0 11 URINE, CLEAN CATCH 12 NO GROWTH: FINAL REPORT 13 SEE RESULT BELOW Name: CASSIDY ANN : [address]: Aldair Hanson MD Acct: [id number] Unit: [id number] AGE: 42 Location: ED Re03/09/17 SEX: F Status: REG ER SPEC: [id number] RANDY: 03/09/17-[address] [facility] [address]: Aldair Hanson MD REQ: [id number] RECD: 03/09/17 STATUS: ALEJA MCNULTY DR: Christin Mancia MD _ SOURCE: URINE [facility]: ORDERED: Urine Culture Procedure Result Reported Site Urine Culture Final 03/10/17- 820 ML No Growth (<1,000 CFU/mL) * ML - MAIN LAB ([facility]) . END OF REPORT * ML=Testing performed at Main Lab DEPARTMENT OF PATHOLOGY, [address] [place] [address] Arya Villafuerte M.D. Director BRE # [id number] 14 SEE RESULT BELOW Name: CASSIDY ANN : [address]: Aldair Hanson MD Acct: [id number] Unit: [id number] AGE: 42 Location: ED Re03/09/17 SEX: F Status: REG ER SPEC: [id number] RANDY: 03/09/[address]: Aldair Hanson MD REQ: [id number] RECD: 03/09/17 STATUS: COMP [facility] DR: Christin Mancia MD _ SOURCE: VAGINAL SPDESC: ORDERED: Soto,Yeast DNA Procedure Result Reported Site Gardnerella/Yeast: Vaginal DNA Final 03/09/17- 1203 ML Organism 1 Negative Gardnerella Organism 2 POSITIVE ALANA The presence of G. vaginalis, although suggestive, is not diagnostic for bacterial vaginosis. Results should be interpreted in conjuction with other clinical and laboratory data available. Women with vaginal discharge should be evaluated for risk factors of cervicitis and pelvic inflammatory disease, toxic shock syndrome (S.aureus), and if present, evaluated for organisms not included in this assay such as N. gonorrhoeae, C. trachomatis, Mobiluncus, Mycoplasma and/or Prevotella. Mixed infections may occur. The performance of this test on patient specimens collected during or immediately after antimicrobial therapy is unknown. The presence or absence of Alana species, or G. vaginalis cannot be used as a test for therapeutic success or failure. * ML - MAIN LAB ([facility]) . END OF REPORT * ML=Testing performed at Main Lab DEPARTMENT OF PATHOLOGY, [address] [place] [address] Arya Villafuerte M.D. Director [facility] # [id number] 15 GC/Chlamydia Source?: Endocervical Trichomonas Source: Affirm Vaginal Swab 16 If is still suspected, please repeat test after 48 to 72 hours. This test detects intact HCG only and is indicated for the early detection of . 17 Z00.00 N92.1 UPDATED DX CODES 18 NORMALLY MENSTRUATING FEMALES: Follicular Phase:............... 2.3-12.6 mIU/mL Mid-Cycle Peak:................. 5.2-17.5 mIU/mL Luteal Phase:................... 1.7-9.5 mIU/mL POSTMENOPAUSAL FEMALES: On menopausal hormone therapy (MHT)... 5.9-72.8 mIU/mL Not on MHT ........................... 0.7-10.8 mIU/mL 19 Pubertal adults FEMALES, menstrual cycle phases: Follicular Phase............. 1.9-12.8 mIU/mL Mid-Cycle Peak............... 22.2-76.1 mIU/mL Luteal Phase................. 0.6-13.5 mIU/mL Post-meonpausal FEMALE: On menopausal hormone therapy (MHT) ... 1.1-52.4 mIU/mL Not on MHT ............................ 8.6-61.8 mIU/mL 20 THERAPEUTIC INR RANGE: 2.0 - 3.0 DVT, Pulmonary embolus, prophylaxis against venous thrombosis or systemic embolization in high risk patients. 2.5 - 3.5 Mechanical heart valves 21 Non- ..... 2.2-30.3 ng/mL ......... 8.1-347.6 ng/mL Post-Menopausal .. 0.7-31.5 ng/mL 22 Reference Range: Adult Females Premenopausal 10 - 55 Postmenopausal 7 - 40 Performed at: ES - [facility] Endocrinology [address] [place] [id number] Press Operator Assistant: Paul Amin MD, Phone: [phone] 23 N64.1 UPDATED DX CODES 24 Hard copy of report to be sent by mail Report may be viewed in Clinical Review, or in PCI under Medical Record Forms 25 I10 E55.9 Z11.4 Z11.59 26 Note: Persistent reduction for 3 months or more in an eGFR <60 mL/min/1.73 m2 defines CKD. Patients with eGFR values >/=60 mL/min/1.73 m2 may also have CKD if evidence of persistent proteinuria is present. The original MDRD equation for estimated GFR is not valid for patients less than 18 years of age. Additional information may be found at www.kdoqi.org. 27 Values below the stated reference ranges of AST and ALT can be seen in normal populations. Clinical correlation is suggested. 28 Elevated levels of HbA1c suggest the need for more aggressive treatment of glycemia. The [place] Diabetes Association recommends that a primary goal of therapy should be a HbA1c of <7% and that physicians should re-evaluate the treatment regimen in patients with HbA1c values consistently >8%. 29 Reference Guidelines*: Desirable: ........... < 200 mg/dL Borderline High: ..... 200-239 mg/dL High: ................ >=240 mg/dL * The National Cholesterol Education Program (NCEP) 30 Reference Guidelines*: Normal: ............. < 150 mg/dL Borderline High: .... 150-199 mg/dL High: ............... 200-499 mg/dL Very High: .......... > 500 mg/dL * Source: National Cholesterol Education Program (NCEP) 31 Reference Guidelines*: Low HDL: ..... < 40 mg/dL Normal: ..... 40-60 mg/dL Desirable: ... > 60 mg/dL *The National Cholesterol Education Program(NCEP) 32 Reference Guidelines*: Optimal:........... <100 mg/dL Near Optimal....... 100-129 mg/dL Borderline High.... 130-159 mg/dL High............... 160-189 mg/dL Very High.......... >=190 mg/dL * Source: National Cholesterol Education Program (NCEP) 33 Vitamin D deficiency has been defined by the [place] [employer] and an Endocrine Society practice guideline as a level of serum 25-OH vitamin D less than 20 ng/mL (1,2). The Endocrine Society went on to further define vitamin D insufficiency as a level between 21 and 29 ng/mL (2). 1. IOM ([place] [employer]). 2010. Dietary reference intakes for calcium and D. [place]: The National Academies Press. 2. Amanda VALLADARES, Lilibeth DENNIS, Michelle BEGUM, et al. Evaluation, treatment, and prevention of vitamin D deficiency: an Endocrine Society clinical practice guideline. JCEM. 2010; 96(7):1911-30. Performed at: [address], [place] [id number] Press Operator Assistant: Ratna Wolfe MD, Phone: [phone] 34 NOTE: A NON-REACTIVE RESULT INDICATES THAT HIV-1 AND HIV-2 ANTIBODIES HAVE NOT BEEN FOUND IN THIS PATIENT SPECIMEN. A NON-REACTIVE RESULT, HOWEVER, DOES NOT PRECLUDE PREVIOUS EXPOSURE OF INFECTION WITH HIV. * [place] STATE LAW PROHIBITS THE REDISCLOSURE OF THIS RESULT * * TO ANY UNAUTHORIZED CONSTITUTION PARTY. * 35 Antibodies to HCV not detected; does not exclude early acute HCV infection. 36 SEE RESULT BELOW Name: CASSIDY ANN : [address]: Daniela Fernández MD Acct: [id number] Unit: [id number] AGE: 41 Location: [facility] Re02/10/16 SEX: F Status: REG REF SPEC: [id number] RANDY: 02/10/16-[address] [facility] [address]: Daniela Fernández MD REQ: [id number] RECD: 02/11/16-1110 STATUS: MICHELLE MCNULTY DR: [facility], Lab _ ORDERED: IMAGE ANALYSIS FINAL DIAGNOSIS Negative for Intraepithelial lesion or Malignancy A. Ectocervical/Endocervical Specimen Adequacy: Satisfactory of evaluation Transformation zone component identified Patient Information: HPV: Thin Layer Pap Test w/reflex to high risk HPV RNA testing when ASCUS Actual Specimen Date: 02/10/16 Last Menstrual Date: 01/17/16 ?: N Post Menopausal?: N Signed (signature on file) MARICEL Murillo (ASCP) 02/13 1312 This Pap test was evaluated with the assistance of the AnagranPrep Test Imaging System. Due to cytologic findings at the nutrition faculty member microscope, comprehensive manual rescreening by a Chief Medical Officer may be required. The Pap Smear is a screening test designed to aid in the detection of premalignant and malignant conditions of the uterine cervix. It is not a diagnostic procedure and should not be used as the sole means of detecting cervical cancer. Both false- positive and false- negative reports do occur. Depending on your risk status, a Pap smear should be obtained and evaluated every 1-3 years. END OF REPORT * ML=Testing performed at Main Lab DEPARTMENT OF PATHOLOGY, [facility], [place], [place] [address] Arya Villafuerte M.D. Director [facility] # [id number] 37 Report may be viewed in PCI: Medical Record Forms -> LAB-SAWMILLING OPERATOR Testing referred to: [place] [address] [address] [facility] * [place] [address] Ph.#. [phone] Note: Persistent reduction for 3 months or more in an eGFR <60 mL/min/1.73 m2 defines CKD. Patients with eGFR values >/=60 mL/min/1.73 m2 may also have CKD if evidence of persistent proteinuria is present. The original MDRD equation for estimated GFR is not valid for patients less than 18 years of age. Additional information may be found at www.kdoqi.org. 39 Elevated levels of HbA1c suggest the need for more aggressive treatment of glycemia. The [place] Diabetes Association recommends that a primary goal of therapy should be a HbA1c of <7% and that physicians should re-evaluate the treatment regimen in patients with HbA1c values consistently >8%. 40 Because ethnic data is not always readily available, this report includes an eGFR for both -Americans and non- Americans. The National Kidney Disease Education Program (NKDEP) does not endorse the use of the MDRD equation for patients that are not between the ages of 18 and 70, are , have extremes of body size, muscle mass, or nutritional status, or are non- or non-. According to the National Kidney Foundation, irrespective of diagnosis, the stage of the disease is based on the level of kidney function: Stage Description GFR(mL/min/1.73 m(2)) 1 Kidney damage with normal or decreased GFR 90 2 Kidney damage with mild decrease in GFR 60-89 3 Moderate decrease in GFR 30-59 4 Severe decrease in GFR 15-29 5 Kidney failure <15 (or dialysis) 41 CYTOLOGY SCREENER Screened by: Janett HAMILTON(ASCP) PAP: FINAL REPORT SPECIMEN ADEQUACY: SPECIMEN SATISFACTORY FOR INTERPRETATION ADEQUATE ENDOCERVICAL/TRANSFORMATION ZONE NOTED INTERPRETATION: NEGATIVE FOR INTRAEPITHELIAL LESION OR MALIGNANCY COMMENT: THINPREP PREPARED PAP SLIDE # Prepared in the Cytology laboratory from the ThinPrep sample is 1 ThinPrep smear. PAP ACCESSI QUESTIONNAIRE 11/07 PERTINENT CLINICAL HISTORY FOR PAP (SAWMILLING OPERATOR) CYTOLOGY (Check all that apply): ? N Post ? N Menopause? N LMP date: 11/04 Last Pap: at [facility]? Y Abnormal Pap? If Yes, date: If patient had related surgical procedure: Related Therapy: Neuroradiologist Patient Number: [id number] Significant Clinical History: V72.31 ===== DISCLAIMER: The Pap smear is a screening test and not a diagnostic procedure. False negative and false positive results can and do occur for a number of reasons. Regular screening provides an aid in detecting treatable cervical abnormalities, but should not be used as the only means for detecting cervical dysplasia and carcinoma. ----- Signed Electronically signed JANETT 11/20/14 1311 ----- 42 Vitamin D deficiency has been defined by the [place] [employer] and an Endocrine Society practice guideline as a level of serum 25-OH vitamin D less than 20 ng/mL (1,2). The Endocrine Society went on to further define vitamin D insufficiency as a level between 21 and 29 ng/mL (2). 1. IOM ([place] [employer]). 2010. Dietary reference intakes for calcium and D. [place]: The National Academies Press. 2. Amanda MF, Lilibeth DENNIS, Michelle BEGUM, et al. Evaluation, treatment, and prevention of vitamin D deficiency: an Endocrine Society clinical practice guideline. JCEM. 2010; 96(7):1911-30. Performed at: [facility] [address] [id number] Press Operator Assistant: Ratna Wolfe MD, Phone: [phone] 43 Note: Persistent reduction for 3 months or more in an eGFR <60 mL/min/1.73 m2 defines CKD. Patients with eGFR values >/=60 mL/min/1.73 m2 may also have CKD if evidence of persistent proteinuria is present. The original MDRD equation for estimated GFR is not valid for patients less than 18 years of age. Additional information may be found at www.kdoqi.org. 44 Elevated levels of HbA1c suggest the need for more aggressive treatment of glycemia. The [place] Diabetes Association recommends that a primary goal of therapy should be a HbA1c of <7% and that physicians should re-evaluate the treatment regimen in patients with HbA1c values consistently >8%. 45 Values below the stated reference ranges of AST and ALT can be seen in normal populations. Clinical correlation is suggested. 46 Reference Guidelines*: Desirable: ........... < 200 mg/dL Borderline High: ..... 200-239 mg/dL High: ................ >=240 mg/dL * The National Cholesterol Education Program (NCEP) 47 Reference Guidelines*: Low HDL: ..... < 40 mg/dL Normal: ..... 40-60 mg/dL Desirable: ... > 60 mg/dL *The National Cholesterol Education Program(NCEP) 48 Reference Guidelines*: Optimal:........... <100 mg/dL Near Optimal....... 100-129 mg/dL Borderline High.... 130-159 mg/dL High............... 160-189 mg/dL Very High.......... >=190 mg/dL * Source: National Cholesterol Education Program ( NCEP) 49 Reference Guidelines*: Normal: ............. < 150 mg/dL Borderline High: .... 150-199 mg/dL High: ............... 200-499 mg/dL Very High: .......... > 500 mg/dL * Source: National Cholesterol Education Program (NCEP) 50 Note: Persistent reduction for 3 months or more in an eGFR <60 mL/min/1.73 m2 defines CKD. Patients with eGFR values >/=60 mL/min/1.73 m2 may also have CKD if evidence of persistent proteinuria is present. The original MDRD equation for estimated GFR is not valid for patients less than 18 years of age. Additional information may be found at www.kdoqi.org. 51 Interpretation: 10-24 (mild to moderate deficiency) -- REFERENCE VALUE -- 25-HYDROXY D TOTAL (D2+D3) Optimum levels in the normal population are 25-80 Test Performed by: [place] [address] Director Process: Eulalio Patel III, M.D. 52 Note: Persistent reduction for 3 months or more in an eGFR <60 mL/min/1.73 m2 defines CKD. Patients with eGFR values >/=60 mL/min/1.73 m2 may also have CKD if evidence of persistent proteinuria is present. The original MDRD equation for estimated GFR is not valid for patients less than 18 years of age. Additional information may be found at www.kdoqi.org. 53 THERAPEUTIC TARGET FOR THE TREATMENT OF DIABETES MELLITUS PATIENTS IS <7% HBA1C, AND IN SELECTIVE PATIENTS <6.0%. PLEASE REFER TO [place] [employer]ATION DIABETIC CARE GUIDELINES FOR FURTHER INFORMATION. 54 Anion gap measurement may be of limited value in the presence of any alkalosis, especially in a combined acid base disorder. . 55 A metabolite of Naproxen, O-desmethylnaproxen, has been shown to interfere with the Jendrassik-Bolckow method for measuring total bilirubin. Samples from patients who have taken Naproxen have shown spurious elevation in total bilirubin levels. 56 Because ethnic data is not always readily available, this report includes an eGFR for both -Americans and non- Americans. The National Kidney Disease Education Program (NKDEP) does not endorse the use of the MDRD equation for patients that are not between the ages of 18 and 70, are , have extremes of body size, muscle mass, or nutritional status, or are non- or non-. According to the National Kidney Foundation, irrespective of diagnosis, the stage of the disease is based on the level of kidney function: Stage Description GFR(mL/min/1.73 m(2)) 1 Kidney damage with normal or decreased GFR 90 2 Kidney damage with mild decrease in GFR 60- 89 3 Moderate decrease in GFR 30-59 4 Severe decrease in GFR 15-29 5 Kidney failure <15 (or dialysis) 57 CHOLESTEROL INTERPRETATION: Desirable: Less than 200 MG/DL Borderline-High Risk: 200-239 MG/DL High-Risk: 240 MG/DL and over 58 HDL INTERPRETATION: Undesirable: High Risk: Less than 40 MG/DL Desirable: Low Risk: Greater than 60 MG/DL 59 LDL INTERPRETATION: Low Risk Optimal Level: LDL Less than 100 MG/DL Near or Above Optimal: LDL 100-129 MG/DL Borderline High Risk: LDL 130-159 MG/DL High Risk : LDL 160-189 MG/DL Very High Risk: LDL Greater than 189 MG/DL 60 UNABLE TO CALCULATE IND.BILI D.BILI IS <0.1 Please note updated reference range, effective 05/19/10 Procedures Date Code Description Status 01/29/2017 [id number] Mammogram Completed 11/16/2015 [id number] Mammogram Completed Encounters Type Date Location Provider Dx Diagnosis Office Visit 10/24/2018 Family Medicine Mandy Petit, R11.2 Nausea with 3:15p Jorge Domingo MD, PHD vomiting, unspecified R53.83 Other fatigue R68.83 Chills (without fever) M54.6 Pain in thoracic spine Office Visit 05/08/2018 11:15a APOLINAR Fernandez MD R11.2 Nausea with vomiting , unspecified R53.83 Other fatigue Office Visit 02/26/2018 10:00a Family Medicine Karly Geronimo, J20.9 Acute bronchitis, Keith KENYON PA unspecified Office Visit 03/01/2017 8:30a Family Medicine Christin Mancia, Z00.01 Encounter for Keith KENYON M.D. general adult medical exam w abnormal findings N92.1 Excessive and frequent menstruation with irregular cycle E03.9 Hypothyroidism, unspecified E55.9 Vitamin D deficiency, unspecified Office Visit 01/16/2017 4:45p Family Medicine Christin Mancia, I10 Essential (primary) Keith KENYON M.D. hypertension F41.9 Anxiety disorder, unspecified E55.9 Vitamin D deficiency, unspecified E03.9 Hypothyroidism, unspecified Office Visit 08/29/2016 10:30a Family Medicine Sara Wallace, I10 Essential (primary) [place] KOSTAS PNP-BC, DIRECTOR OF PHARMACY, hypertension Ibclc Office Visit 02/21/2016 2:00p Family Medicine Jolene F41.9 Anxiety disorder, Keith Suarez MD unspecified Office Visit 02/17/2016 3:45p Family Paul Fernández F41.9 Anxiety disorder, Keith Suarez MD unspecified Office Visit 02/10/2016 11:00a Family Paul Fernández F41.9 Anxiety disorder, Keith Suarez MD unspecified Z00.00 Encntr for general adult medical exam w/o abnormal findings Z12.4 Encounter for screening for malignant neoplasm of cervix Office Visit 11/11/2015 3:45p Family Fernández I10 Essential Medicine Keith Suarez MD (primary) RD hypertension Office Visit 06/17/2015 4:15p Family Fernández 401.1 Hypertension Medicine Keith Suarez MD Benign RD Office Visit 03/15/2015 4:15p Family Fernández 300.00 Anxiety State Medicine Keith Suarez MD Unspec RD Office Visit 02/11/2015 10:45a Family Fernández 300.00 Anxiety State Medicine Keith Suarez MD Unspec RD Plan of Treatment 10/28/2018 - Juve Garcia MDJ20.9 Acute bronchitis, unspecifiedNew Medication: Benzonatate 200 mg - take 1 capsule 3 times daily as needed for a cough.Comments :Your cough is likely viral in nature. I do not think you need a chest x-ray now. Things which may help including Vitamin C supplement, honey tessie tea, and salt gargles. I am sending in a script to your pharmacy for as needed benzonatate. If symptoms get worse please call me immediately. Follow up asneeded.Follow up:As needed.
--- OUTSIDE RECORDS SUMMARY | 2018-10-28 21:39 | XMS REPORT | Continuity of Care Document ---
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 Aly Calvin MD Primary Care Physician Unavailable Payers Type Date Identification Numbers Payment Provider Subscriber Policy Number: [id number] [facility] Js Paul Phil FOSTER Group Name: [facility] [address] [address] PayID: [id number] [place] [address] Advance Directives Description No Information Available Problems [...] Family Member(s) Problem(s) Comments General Non Contributory Mother bariatric surgery Mother pelvic cancer (?uterine) First Son mild autism First Son tourette's First Brother bariatric surgery Social History Type Date Description Comments Sex Unknown Marital Status Lives With Lives With Son Home Environment Lives With FAMILY Diet Healthy, Well Balanced Occupation Currently Working Smokeless Tobacco Never Used Smokeless Tobacco ETOH Use Occasionally consumes alcohol Tobacco Use Start: Unknown End: Patient is a former smoker Unknown Recreational Drug Use Never Used Drugs Smoking Status Reviewed: 02/26/18 Patient is a former smoker Allergies, Adverse Reactions, Alerts Date Description Reaction Status Severity Comments 02/11/2015 Penicillin Active 01/05/2012 Cats Active Medications Medication Date Status Form Strength Qnty SIG Indications Ordering Provider Omeprazole 05/08 Active Capsules 20mg 90cap 1 tab by R11.2 s mouth every MD Jim day every morning Vitamin D 06/25 Active Capsules [id number] 12cap Take One Kushal (Ergocalciferol) s Capsule By MD Ping Mouth Once Every Week Effexor XR 03/15 Active Caps ER 150mg 90cap Take One Blanche 24HR s Capsule By Sim Waller Every M.D. Day Levothyroxine 01/05 Active Tablets 88mcg 90tab Take One Kushal Sodium s Tablet By MD Ping Mouth Every Day Maximum Daily Dose=1 Tablet Telmisartan 07/28 Active Tablets 40mg 90tab take one I10 [place], s tablet by Sara mouth every PNP-BC, day [employer], Ibclc Azithromycin 02/26 Hx Tablets 250mg 6tabs 2 tab by J20.9 mouth day 1 Christin, - 1 tab by Stephanie 03/03 mouth 2-5 Methylprednisolone 02/26 Hx TBPK 4mg 21uni take J20.9 ts tablets as Christin, - directed-do M.D. 03/03 se pack Ventolin HFA 02/26 Hx Aerosol 108(90Bas 18gm 2 puffs J20.9 e) every 4 Christin, - mcg/Act hours as M.D. 03/08 needed for cough and wheeze Fluconazole 03/09 Hx Tablets 150mg 1tabs 1 by mouth by Christin queen, - repeat in M.D. 02/26 one week if not improved Medroxyprogesteron 03/01 Hx Tablets 10mg 10tab 1 tab by N92.1 paul Mancia Acetate s mouth every Christin, - daily for M.D. 02/26 bleeding Work 02/20 Hx Cassidy Ratliffley return to Daniela - work with MD 02/21 restriction s. Work 02/16 Hx Cassidy february Jolene not work Daniela Zamudio 02/18/16. MD 02/21 reevaluate on 02/21/16. Vitamin D 10/19 Hx Capsules [id number] 12cap take one Kushal, (Ergocalciferol) s capsule by MD Ping - mouth every Effexor XR 02/11 Hx Caps ER 75mg 180ca 2 by mouth Jolene 24HR ps every day Daniela Zamudio MD 03/15 Ergocalciferol 11/17 Hx Capsules [id number] 12cap 1 po q week Lamas, s Clarissa Zamudio MD 10/19 Effexor XR 03/13 Hx Caps ER 37.5mg 90cap 1 by mouth Jolene 24HR s every day Daniela Zamudio MD 02/11 Cetirizine HCL 0000 Hx Tablets 10mg 90tab 1 po qd Jolene, / s Daniela Zamudio MD 03/15 Xanax 0000 Hx Tablets 0.5mg 1 by mouth Unknown /0000 morning of - procedure 02/12 one hour before starting; february repeat x 1 Trazodone HCL 00/00 Hx Tablets 100mg 30tab 1 by mouth Jolene, /0000 s at bedtime Daniela Zamudio MD 02/20 Clonazepam 0000 Hx Tablets 0.5mg 30tab 1 by mouth Jolene, /0000 s three times Daniela Zamudio a day. ref MD 02/26 # [id number] Immunizations CPT Code Status Date Vaccine Lot # [id number] Given 07/20/2016 Tdap injection [id number] Vital Signs Date Vital Result Comment 10/24/2018 3:16pm BP Systolic 140 mmHg BP Diastolic 84 mmHg Body Temperature 98.9 F Heart Rate 100 /min Respiratory Rate 18 /min Height 61 inches 5'1" Weight 247.00 lb BMI (Body Mass Index) 46.7 kg/m2 BSA (Body Surface Area) 2.07 m2 [place] body weight in kilograms 48 kg O2 % BldC Oximetry 96 % 05/08/2018 11:17am BP Systolic Sitting Left Arm 142 mmHg BP Diastolic Sitting Left Arm 80 mmHg Heart Rate 82 /min Respiratory Rate 18 /min Height 61 inches 5'1" [place] body weight in kilograms 48 kg O2 [...] kg/m2 BSA (Body Surface Area) 1.96 m2 [place] body weight in kilograms 54 kg 08/29/2016 10:36am BP Systolic 132 mmHg BP Diastolic 90 mmHg BP Systolic Sitting Left Arm 138 mmHg BP Diastolic Sitting Left Arm 92 mmHg 02/21/2016 2:13pm BP Systolic Sitting Left Arm 114 mmHg BP Diastolic Sitting Left Arm 72 mmHg Weight 214.00 lb Last Menstrual Period [id number] 02/17/2016 6:39pm BP Systolic 148 mmHg BP [...] Surface Area) 1.97 m2 Last Menstrual Period [id number] 11/11/2015 3:52pm BP Systolic 140 mmHg BP Diastolic 78 mmHg Height 62 inches 5'2" Weight 217.38 lb BMI (Body Mass Index) 39.8 kg/m2 BSA (Body Surface Area) 1.98 m2 Last Menstrual Period [id number] 06/17/2015 4:35pm BP Systolic 102 mmHg BP [...] Date Facility Test Result H/L Range Note Laboratory test 10/21/2018 [facility] Poc Negative Negative 1 finding [phone] , Urine Poc Urinalysis 10/21/2018 [facility] Poc Glucose, Negative Negative [phone] Urine Poc Bilirubin, Urine Negative Negative Poc Ketone, Urine Negative Negative Poc Specific Alb[place], Urine 1.015 N 1.010-1.030 Poc Blood, Urine Negative Negative Poc pH, Urine 7.5 N 5-9 Poc Protein, Urine Negative Negative Poc Urobilinogen, Urine 0.2 Negative Poc Nitrite, Urine Negative Negative Poc Leukocytes, Urine Negative Negative Poc Color, Urine Yellow Poc Clarity, Urine Clear 2 Laboratory 07/25/2017 [facility] Urine HCG NEGATIVE Negative 3, 4 test finding [address] (Qualitative) [place] [address] [phone] Ua Routine 07/17/2017 [facility] Urine Color ORANGE Yellow [address] [place], [place] [id number] [phone] Urine Clarity CLEAR Clear Urine Glucose - Dipstick NEGATIVE mg/dL Negative Urine Bilirubin - Dipstick NEGATIVE Negative Urine Ketone NEGATIVE mg/dL Negative Urine Specific Albright 1.020 N 1.010-1.030 Urine Blood LARGE Abnormal [...] Seen Source: URINE, CLEAN CAT <SEE NOTE> 6 Urine Culture 07/17/2017 [facility] Urine Culture NO GROWTH: [address] FINAL <[place] [address] NOTE> [phone] Laboratory test 03/09/2017 [facility] Urine Culture SEE RESULT 8 finding [phone] BELOW Laboratory test 03/09/2017 [facility] Gardnerella/Yea SEE RESULT 9 finding [phone] st: Vaginal Dna BELOW GC/Chlamydia 03/09/2017 [facility] Chlamydia Negative N Negative Amplified Rna [phone] trachomatis Rna Neisseria gonorrhoeae (GC) Rna Negative N Negative Laboratory test 03/09/2017 [facility] Trichomonas Negative N Negative 10 finding [phone] vaginalis Rna Laboratory test 03/09/2017 [facility] Urine Negative N Negative 11 finding [phone] Urinalysis 03/09/2017 [facility] Urine Color Yellow N Profile [phone] Urine Appearance Clear N Urine Specific Albright 1.023 N 1.010-1.030 Urine pH 7.0 N [...] Crystals Present Abnormal Absent CBS W/Automated 03/01/2017 [facility] White Blood 6.7 K/uL N 3.1-10.[address] [place] [address] [phone] Red Blood Count 4.88 M/uL N 3.90-5.40 [...] 40.4-72.8 Lymph % 24.9 % N 20.0-42.0 [place] % 6.4 % N 4.3-13.2 Eo% 1.5 % N 0.0-6.6 Bas% 0.4 % N 0.0-1.1 Neut# 4.46 K/uL N 1.8-7.0 Lymph # 1.66 K/uL N 1.0-4.0 [place] # 0.43 K/uL N 0.3-0.9 Eos # 0.10 K/uL N 0.0-0.5 Baso # 0.03 K/uL N 0.0-0.1 Laboratory test finding 03/01/2017 [facility] FSH 14.6 mIU/mL [address] [place] [address] [phone] Luteinizing Hormone 5.5 mIU/mL 14 Protime 03/01/2017 [facility] Protime 12.6 seconds N 12.0-14.[address] [place] [address] [phone] Inr 1.0 N 0.9-1.1 15 Laboratory test 03/01/2017 [facility] Act Partial 27.4 seconds N 23.4-35.[address] [place] [place] [address] [phone] Prolactin 6.8 ng/mL 16 Testosterone, Women/Child 25 ng/dL . 17 HPV High Risk 03/01/2017 [facility] HPV High Results on 18, [address] [place] [address] [phone] Comprehensive 01/16/2017 [facility] Glucose 84 mg/dL N 74-1 20 Metabolic Panel [address] [place] [address] [phone] BUN 13 mg/dL N 7-18 Creatinine 0.7 mg/dL N 0.6-1.3 Glom Filtration Rate, Estimate >60 mL/min >60 If >60 mL/min >60 21 BUN/Creat 18.5 ratio Sodium 141 mmol/L N [...] N 0.2-1.0 Sgot/Ast 11 U/L Low 15-37 22 SGPT/Alt 27 U/L N 12-78 Alkaline Phosphatase 44 U/L Low 45-117 Reflex add FT3? Y Reflex add FT4? Y Glycohemoglobin A1c 01/16/2017 [facility] Glycohemoglobin 5.5 % N 4.2-6.[address] (A1c) [place] [address] [phone] eAG 111 mg/dL LDL Cholesterol Profile 01/16/2017 [facility] Cholesterol 194 mg/dL <[address] [place] [address] [phone] Triglycerides 87 mg/dL <150 25 HDL Cholesterol 59 mg/dL >40 26 LDL-Cholesterol 118 mg/dL < 100 27 Reflex add FT3? Y Reflex add FT4? Y TSH Reflex FT4 01/16/2017 [facility] Thyroid Stim 1.10 uIU/mL N 0.30-4.20 And/Or FT3 [address] [place] [address] [phone] Reflex add FT3? Y Reflex add FT4? Y Laboratory test 01/16/2017 [facility] Vitamin 55.4 30.0-100.[address] D,25-Hydroxy ng/mL [place], [place] [address] [phone] Antibody Detection-Hiv1/2 SCRN Nonreactive Nonreactive 29 Hepatitis C 01/16/2017 [facility] Hepatitis C Nonreactive Nonreactive Antibody [address] [place] [address] [phone] Signal/Cutoff ratio < 0.02 <0.80 30 Laboratory test 02/10/2016 [facility] Cytology Interface SEE RESULT 31 finding [phone] Order BELOW Laboratory test 02/10/2016 [facility] Cytopathology Results on [address] Cervix/Vagina file [place], [place] [address] [phone] Laboratory test 11/11/2015 [facility] Thyroid Stim 1.59 uIU/mL 0.36- finding [address] Hormone 3.74 [place], [place] [address] [phone] Basic Metabolic 11/11/2015 [facility] Glucose 91 mg/dL 74-[address] [place], [place] [address] [phone] BUN 14 mg/dL 7-18 Creatinine 0.6 mg/dL 0.6-1.3 Glom Filtration Rate, Estimate >60 mL/min >60 If >60 mL/min >60 33 BUN/Creat 23.3 ratio Sodium 139 mmol/L 136-145 Potassium 3.7 mmol/L 3.5-5.1 Chloride 105 mmol/L 98-107 Carbon Dioxide 30 mmol/L 21-32 Anion Gap 4 mEq/L Low 8-16 Calcium 8.3 mg/dL Low 8.5-10.1 Glycohemoglobin A1c 11/11/2015 [facility] Glycohemoglobin 5.2 % 4.2-6.[address] (A1c) [place] [address] [phone] eAG 103 mg/dL CBC Auto Diff 02/10/2015 [facility] White Blood 9.4 10^3/uL N 4.8-10.8 [phone] Count Red Blood Count 5.12 10^6/uL N [...] % 0.1 N Comp Metabolic Panel 02/10/2015 [facility] Sodium 137 mmol/L N 133-145 [phone] Potassium 4.5 mmol/L N 3.5-5.0 Chloride 101 [...] 98.2 N >60 Egfr 126.3 N >60 35 Laboratory test 02/10/2015 [facility] TSH (Thyroid 1.35 N 0.34-5.60 finding [phone] Stimulating IU/mL Horm) Laboratory test 11/18/2014 N2N/CCD Import ThinPrep Pap: See Note 36 finding Cervix/Endocx Laboratory test 11/13/2014 N2N/CCD Import Thyroid Stim 2.11 0.36-3.74 finding Hormone uIU/mL Vitamin D,25-Hydroxy 18.6 ng/mL Low 30.0-100.0 37 Basic Metabolic Panel 11/13/2014 N2N/CCD Import Anion Gap 9 mEq/L 8-16 BUN 12 mg/dL 7-18 BUN/Creat 17.1 ratio Calcium 8.9 mg/dL 8.5-10.1 Carbon Dioxide 28 mmol/L 21-32 Chloride 105 mmol/L 98-107 Creatinine 0.7 mg/dL 0.6-1.3 Glom Filtration Rate, Estimate >60 mL/min >60 Glucose 106 mg/dL 74-106 If >60 mL/min >60 38 Potassium 4.1 mmol/L 3.5-5.1 Sodium 138 mmol/L [...] Count 8.2 K/uL 3.1-10.7 Glycohemoglobin A1c 11/13/2014 N2N/[facility] Import Glycohemoglobin (A1c) 6.1 % 4.2-6.3 39 eAG 128 mg/dL Liver Function Tests 11/13/2014 N2N/[facility] Import Alb/Glob 1.0 ratio Albumin 3.6 g/dL 3.4-5.0 Alkaline Phosphatase 54 U/L 45-117 Bilirubin,Direct < 0.1 mg/dL 0.0-0.2 Bilirubin,Indirect 0.3 mg/dL 0.0-0.9 Bilirubin,Total 0.4 mg/dL 0.2-1.0 Globulin 3.5 g/dL 1.9-4.3 SGPT/Alt 39 U/L 12-78 Sgot/Ast 13 U/L Low 15-37 40 Total Protein 7.1 g/dL 6.4-8.2 LDL Cholesterol Profile 11/13/2014 [facility] Import Cholesterol 153 mg/dL < 200 41 HDL Cholesterol 32 mg/dL > 40 42 LDL-Cholesterol 87 mg/dL < 100 43 Triglycerides 170 mg/dL < 150 44 LDL Cholesterol Profile 01/02/2014 [facility] Import Cholesterol 158 mg/dL 120-200 HDL Cholesterol 33 mg/dL 29-83 LDL-Cholesterol 88 mg/dL 62-185 Triglycerides 187 mg/dL 16-231 Comprehensive Metabolic Panel 01/02/2014 [facility] Import Alb/Glob 0.9 ratio Albumin 3.6 g/dL [...] 82 mg/dL 76-115 If >60 mL/min >60 45 Potassium 4.3 mmol/L 3.5-5.1 SGPT/Alt 30 U/L [...] 30.8-34.3 Mean Platelet Volume 10.9 fL 8.9-12.4 [place] # 0.50 K/uL 0.3-0.9 [place] % 6.4 % 4.3-13.2 Neut# 4.81 K/uL [...] 25 03/13/2013 N2N/CCD Import 25-Hydroxy 23 ng/mL 46 Hydroxy Vitamin D Total 25-Hydroxy Vitamin D2 [...] 100 mg/dL 76-115 If >60 mL/min >60 47 Potassium 4.1 mmol/L 3.5-5.1 Sodium 140 mmol/L 136-145 LDL Cholesterol Profile 08/12/2012 N2N/CCD Import Cholesterol 167 mg/dL 120-200 HDL Cholesterol 33 mg/dL 29-83 LDL-Cholesterol 102 mg/dL 62-185 Triglycerides 158 mg/dL 16-231 Laboratory test 01/04/2012 N2N/CCD Import Hemoglobin A1c 5.6 % Less Than 6.0 48 finding TSH 3.80 MIU/ML 0.34-5.60 CBC Auto [...] U/L 14-54 Anion Gap 8.0 mmol/L 2-11 49 Ast (Sgot) 16 U/L 12-42 BUN 10 mg/dL 6-24 BUN/Creatinine Ratio 14.3 8-20 Bilirubin Total 0.6 mg/dL 0.4-1.5 50 Calcium 9.4 mg/dL 8.1-9.9 Chloride 103 mmol/L 101-111 Co2 (Carbon Dioxide) 29.0 mmol/L 22-32 Creatinine 0.7 mg/dL 0.50-1.40 Globulin 2.5 GM/DL 2-4 Glucose 96 mg/dL 70-100 One Over Creatinine 1.42 Potassium 4.6 mmol/L 3.5-5.0 Sodium 140 mmol/L 135-145 Total Protein 6.4 GM/DL 6.2-8.1 eGFR 120.4 > 60 51 eGFR Non- 93.6 > 60 Lipid Profile 12/15/2011 N2N/CCD Import Cholesterol 194 mg/dL Less Than 52 (Trig/Chol/HDL) 200 Cholesterol/HDL Ratio 4.97 AVERAGE High 1-4.44 High Density Lipoprotein 39 mg/dL Low 40-60 53 Low Density Lipoprotein 121 mg/dL High Less Than 100 54 Triglyceride 169 mg/dL 40-200 Liver Function 12/15/2011 N2N/CCD Import Bilirubin Direct 0.0 mg/dL Low 0.1-0.5 Panel Indirect Bilirubin (See Note) mg/dL 0.3-1.0 55 1 Waist Fitter: [id number] Test Disclaimer: Positive bacteria, red blood cells, white blood cells, early , low specific gravity, and other factors may cause false positive or negative results. It is recommended to retest unexpected results within 24 to 72 hours with a serum test when applicable. If is still suspected, please repeat test after 48 to 72 hours. 2 Waist Fitter: [id number] CONSULT 07/23/17 10;30 00667 4 FIRST MORNING SPECIMENS GENERALLY CONTAIN THE HIGHEST CONCENTRATION OF HCG AND ARE RECOMMENDED FOR EARLY DETECTION OF . Method: Quidel QuickVue One-Step Immunoassay 5 N92.0 6 URINE, CLEAN CATCH 7 NO GROWTH: FINAL REPORT 8 SEE RESULT BELOW Name: CASSIDY ANN : [address]: Aldair Hanson MD Acct: [id number] Unit: [id number] AGE: 42 Location: ED Re03/09/17 SEX: F Status: REG ER SPEC: [id number] RANDY: 03/09/[address]: Aldair Hanson MD REQ: [id number] RECD: 03/09/17 STATUS: ALEJA MCNULTY DR: Christin Mancia MD _ SOURCE: URINE SPDESC: ORDERED: Urine Culture Procedure Result Reported Site Urine Culture Final 03/10/17- 820 ML No Growth (<1,000 CFU/mL) * ML - MAIN LAB (PSC1) . END OF REPORT * ML=Testing performed at Main Lab DEPARTMENT OF PATHOLOGY, [address] [place] [address] Arya Villafuerte M.D. Director [facility] # [id number] 9 SEE RESULT BELOW Name: CASSIDY ANN : [address]: Aldair Hanson MD Acct: [id number] Unit: [id number] AGE: 42 Location: ED Re03/09/17 SEX: F Status: REG ER SPEC: [id number] RANDY: 03/09/17-[address]: Aldair Hanson MD REQ: [id number] RECD: 03/09/17 STATUS: COMP OTHR DR: Christin Mancia MD _ SOURCE: VAGINAL [...] or failure. * ML - MAIN LAB ([facility]) . END OF REPORT * ML=Testing performed at Main Lab DEPARTMENT OF PATHOLOGY, [address] [place] [address] Arya Villafuerte M.D. Director [facility] # [id number] 10 GC/Chlamydia Source?: Endocervical Trichomonas Source: Affirm Vaginal Swab 11 If is still suspected, please repeat test after 48 to 72 hours. This test detects intact HCG only and is indicated for the early detection of . 12 Z00.00 N92.1 UPDATED DX CODES 13 NORMALLY MENSTRUATING FEMALES: Follicular Phase:............... 2.3-12.6 mIU/mL Mid-Cycle Peak:................. 5.2-17.5 mIU/mL Luteal Phase:................... 1.7-9.5 mIU/mL POSTMENOPAUSAL FEMALES: On menopausal hormone therapy (MHT)... 5.9-72.8 mIU/mL Not on MHT ........................... 0.7-10.8 mIU/mL 14 Pubertal adults FEMALES, menstrual cycle phases: Follicular Phase............. 1.9-12.8 mIU/mL Mid-Cycle Peak............... 22.2-76.1 mIU/mL Luteal Phase................. 0.6-13.5 mIU/mL Post-meonpausal FEMALE: On menopausal hormone therapy (MHT) ... 1.1-52.4 mIU/mL Not on MHT ............................ 8.6-61.8 mIU/mL 15 THERAPEUTIC INR RANGE: 2.0 - 3.0 DVT, Pulmonary embolus, prophylaxis against venous thrombosis or systemic embolization in high risk patients. 2.5 - 3.5 Mechanical heart valves 16 Non- ..... 2.2-30.3 ng/mL ......... 8.1-347.6 ng/mL Post-Menopausal .. 0.7-31.5 ng/mL 17 Reference Range: Adult Females Premenopausal 10 - 55 Postmenopausal 7 - 40 Performed at: ES - [facility] Endocrinology [address] [place] [id number] Asian Studies Program Chair: Paul Amin MD, Phone: [phone] 18 N92.1 UPDATED DX CODES 19 Hard copy of report to be sent by mail Report may be viewed in Clinical Review, or in PCI under Medical Record Forms 20 I10 E55.9 Z11.4 Z11.59 21 Note: Persistent reduction for 3 months or more in an eGFR <60 mL/min/1.73 m2 defines CKD. Patients with eGFR values >/=60 mL/min/1.73 m2 may also have CKD if evidence of persistent proteinuria is present. The original MDRD equation for estimated GFR is not valid for patients less than 18 years of age. Additional information may be found at www.kdoqi.org. 22 Values below the stated reference ranges of AST and ALT can be seen in normal populations. Clinical correlation is suggested. 23 Elevated levels of HbA1c suggest the need for more aggressive treatment of glycemia. The [place] Diabetes Association recommends that a primary goal of therapy should be a HbA1c of <7% and that physicians should re-evaluate the treatment regimen in patients with HbA1c values consistently >8%. 24 Reference Guidelines*: Desirable: ........... < 200 mg/dL Borderline High: ..... 200-239 mg/dL High: ................ >=240 mg/dL * The National Cholesterol Education Program (NCEP) 25 Reference Guidelines*: Normal: ............. < 150 mg/dL Borderline High: .... 150-199 mg/dL High: ............... 200-499 mg/dL Very High: .......... > 500 mg/dL * Source: National Cholesterol Education Program (NCEP) 26 Reference Guidelines*: Low HDL: ..... < 40 mg/dL Normal: ..... 40-60 mg/dL Desirable: ... > 60 mg/dL *The National Cholesterol Education Program(NCEP) 27 Reference Guidelines*: Optimal:........... <100 mg/dL Near Optimal....... 100-129 mg/dL Borderline High.... 130-159 mg/dL High............... 160-189 mg/dL Very High.......... >=190 mg/dL * Source: National Cholesterol Education Program (NCEP) 28 Vitamin D deficiency has been defined by the [place] of [employer] and an Endocrine Society practice guideline as a level of serum 25-OH vitamin D less than 20 ng/mL (1,2). The Endocrine Society went on to further define vitamin D insufficiency as a level between 21 and 29 ng/mL (2). 1. IOM ([place] of [employer]). 2010. Dietary reference intakes for calcium and D. [place]: The National Academies Press. 2. Amanda MF, iLlibeth DENNIS, Michelle BEGUM, et al. Evaluation, treatment, and prevention of vitamin D deficiency: an Endocrine Society clinical practice guideline. JCEM. 2010; 96(7):1911-30. Performed at: RN - [facility] [address] [id number] Asian Studies Program Chair: Ratna Wolfe MD, Phone: [phone] 29 NOTE: A NON-REACTIVE RESULT INDICATES THAT HIV-1 AND HIV-2 ANTIBODIES HAVE NOT BEEN FOUND IN THIS PATIENT SPECIMEN. A NON-REACTIVE RESULT, HOWEVER, DOES NOT PRECLUDE PREVIOUS EXPOSURE OF INFECTION WITH HIV. * [place] STATE LAW PROHIBITS THE REDISCLOSURE OF THIS RESULT * * TO ANY UNAUTHORIZED DEMOCRAT. * 30 Antibodies to HCV not detected; does not exclude early acute HCV infection. 31 SEE RESULT BELOW Name: CASSIDY ANN : [address]: Daniela Fernádnez MD Acct: [id number] Unit: [id number] AGE: 41 Location: [facility] Re02/10/16 SEX: F Status: REG REF SPEC: [id number] RANDY: 02/10/16-[address] [facility] [address]: Daniela Fernández MD REQ: [id number] RECD: 02/11/16-1110 STATUS: MICHELLE MCNULTY DR: [facility], Lab _ ORDERED: IMAGE ANALYSIS FINAL [...] was evaluated with the assistance of the MentegramPrep Test Imaging System. Due to cytologic findings at the manufacturing project manager microscope, comprehensive manual rescreening by a Cell Geneticist may be required. The Pap Smear is [...] performed at Main Lab DEPARTMENT OF PATHOLOGY, [address] [place] [address] Arya Villafuerte M.D. Director [facility] # [id number] 32 Report may be viewed in PCI: Medical Record Forms -> LAB-RULING MACHINE SET UP OPERATOR Testing referred to: [address] * [place] [address] Ph.#. [phone] 33 Note: Persistent reduction for 3 months or more in an eGFR <60 mL/min/1.73 m2 defines CKD. Patients with eGFR values >/=60 mL/min/1.73 m2 may also have CKD if evidence of persistent proteinuria is present. The original MDRD equation for estimated GFR is not valid for patients less than 18 years of age. Additional information may be found at www.kdoqi.org. 34 Elevated levels of HbA1c suggest the need for more aggressive treatment of glycemia. The [place] Diabetes Association recommends that a primary goal of therapy should be a HbA1c of <7% and that physicians should re-evaluate the treatment regimen in patients with HbA1c values consistently >8%. 35 Because ethnic data is not always readily [...] 15-29 5 Kidney failure <15 (or dialysis) 36 CYTOLOGY SCREENER Screened by: Janett Caldera SCT(ASCP) PAP: FINAL REPORT SPECIMEN ADEQUACY: SPECIMEN SATISFACTORY FOR INTERPRETATION ADEQUATE ENDOCERVICAL/TRANSFORMATION ZONE NOTED INTERPRETATION: NEGATIVE FOR INTRAEPITHELIAL LESION OR MALIGNANCY COMMENT: THINPREP PREPARED PAP SLIDE # Prepared in the Cytology laboratory from the ThinPrep sample is 1 ThinPrep smear. PAP ACCESSI QUESTIONNAIRE 11/07 PERTINENT CLINICAL HISTORY FOR PAP (RULING MACHINE SET UP OPERATOR) CYTOLOGY (Check all that apply): ? N Post ? N Menopause? N LMP date: 11/04 Last Pap: at [facility]? Y Abnormal Pap? If Yes, date: If patient had related surgical procedure: Related Therapy: Land Conservation Specialist Patient Number: [id number] Significant Clinical History: V72.31 ===== DISCLAIMER: The Pap smear is a screening test and not a diagnostic procedure. False negative and false positive results can and do occur for a number of reasons. Regular screening provides an aid in detecting treatable cervical abnormalities, but should not be used as the only means for detecting cervical dysplasia and carcinoma. ----- Signed Electronically signed JANETT CALDERA 11/20/14 1311 ----- 37 Vitamin D deficiency has been defined by the [place] of [employer] and an Endocrine Society practice guideline as a level of serum 25-OH vitamin D less than 20 ng/mL (1,2). The Endocrine Society went on to further define vitamin D insufficiency as a level between 21 and 29 ng/mL (2). 1. IOM ([place] [employer]). 2010. Dietary reference intakes for calcium and D. [place]: The National Academies Press. 2. Amanda MF, Lilibeth NC, Michelle BEGUM, et al. Evaluation, treatment, and prevention of vitamin D deficiency: an Endocrine Society clinical practice guideline. JCEM. 2010; 96(7):1911-30. Performed at: RN - [facility] [address] [id number] Asian Studies Program Chair: Ratna Wolfe MD, Phone: [phone] Note: Persistent reduction for 3 months [...] for more aggressive treatment of glycemia. The [place] [employer] Association recommends that a primary goal of therapy should be a HbA1c of <7% and that physicians should re-evaluate the treatment regimen in patients with HbA1c values consistently >8%. 40 Values below the stated reference ranges of AST and ALT can be seen in normal populations. Clinical correlation is suggested. 41 Reference Guidelines*: Desirable: ........... < 200 mg/dL Borderline High: ..... 200-239 mg/dL High: ................ >=240 mg/dL * The National Cholesterol Education Program (NCEP) 42 Reference Guidelines*: Low HDL: ..... < 40 mg/dL Normal: ..... 40-60 mg/dL Desirable: ... > 60 mg/dL *The National Cholesterol Education Program(NCEP) 43 Reference Guidelines*: Optimal:........... <100 mg/dL Near Optimal....... 100-129 mg/dL Borderline High.... 130-159 mg/dL High............... 160-189 mg/dL Very High.......... >=190 mg/dL * Source: National Cholesterol Education Program ( NCEP) 44 Reference Guidelines*: Normal: ............. < 150 mg/dL Borderline High: .... 150-199 mg/dL High: ............... 200-499 mg/dL Very High: .......... > 500 mg/dL * Source: National Cholesterol Education Program (NCEP) 45 Note: Persistent reduction for 3 months or more in an eGFR <60 mL/min/1.73 m2 defines CKD. Patients with eGFR values >/=60 mL/min/1.73 m2 may also have CKD if evidence of persistent proteinuria is present. The original MDRD equation for estimated GFR is not valid for patients less than 18 years of age. Additional information may be found at www.kdoqi.org. 46 Interpretation: 10-24 (mild to moderate deficiency) -- REFERENCE VALUE -- 25-HYDROXY D TOTAL (D2+D3) Optimum levels in the normal population are 25-80 Test Performed by: [address] [address] Family Support Coordinator: Eulalio Patel III, M.D. 47 Note: Persistent reduction for 3 months or more in an eGFR <60 mL/min/1.73 m2 defines CKD. Patients with eGFR values >/=60 mL/min/1.73 m2 may also have CKD if evidence of persistent proteinuria is present. The original MDRD equation for estimated GFR is not valid for patients less than 18 years of age. Additional information may be found at www.kdoqi.org. 48 THERAPEUTIC TARGET FOR THE TREATMENT OF DIABETES MELLITUS PATIENTS IS <7% HBA1C, AND IN SELECTIVE PATIENTS <6.0%. PLEASE REFER TO [place] [employer] DIABETIC CARE GUIDELINES FOR FURTHER INFORMATION. 49 Anion gap measurement may be of limited value in the presence of any alkalosis, especially in a combined acid base disorder. . 50 A metabolite of Naproxen, O-desmethylnaproxen, has been shown to interfere with the [place] method for measuring total bilirubin. Samples from patients who have taken Naproxen have shown spurious elevation in total bilirubin levels. 51 Because ethnic data is not always readily [...] 15-29 5 Kidney failure <15 (or dialysis) 52 CHOLESTEROL INTERPRETATION: Desirable: Less than 200 MG/DL Borderline-High Risk: 200-239 MG/DL High-Risk: 240 MG/DL and over 53 HDL INTERPRETATION: Undesirable: High Risk: Less than 40 MG/DL Desirable: Low Risk: Greater than 60 MG/DL 54 LDL INTERPRETATION: Low Risk Optimal Level: LDL Less than 100 MG/DL Near or Above Optimal: LDL 100-129 MG/DL Borderline High Risk: LDL 130-159 MG/DL High Risk : LDL 160-189 MG/DL Very High Risk: LDL Greater than 189 MG/DL 55 UNABLE TO CALCULATE IND.BILI D.BILI IS <0.1 Please note updated reference range, effective 05/19/10 Procedures Date Code Description Status 01/29/2017 [id number] Mammogram Completed 11/16/2015 [id number] Mammogram Completed Encounters Type Date Location Provider Dx Diagnosis Office Visit 05/08/2018 11:15a APOLINAR Fernandez MD R11.2 Nausea with vomiting , unspecified R53.83 Other fatigue Office Visit 02/26/2018 10:00a Family Medicine Karly Geronimo, J20.9 Acute bronchitis, [place] unspecified Office Visit 03/01/2017 8:30a Family [...] Wallace, I10 Essential (primary) [place] PNP-BC, COORDINATOR OF REHABILITATION SERVICES, hypertension Ibclc Office Visit 02/21/2016 2:00p Family Medicine Jolene F41.9 Anxiety disorder, [place] Suarez MD unspecified Office Visit 02/17/2016 3:45p Family Medicine Nithin Fernández1.9 Anxiety disorder, [place] Suarez MD unspecified Office Visit 02/10/2016 11:00a Family Paul Fernández F41.9 Anxiety disorder, [place] Suarez MD unspecified Z00.00 Encntr for general [...] Suarez MD Unspec RD Plan of Treatment 10/24/2018 - Mandy Petit MD, PHDR11.2 Nausea with vomiting, unspecifiedComments:Please continue to aggressively hydrate. Urine with protein and blood - but no sign of infection. Kidneys likely running slow - if you can' t drink enough to make urine run clear every couple of hours, we should check on function - to hospital if not urinating!Does not look like UTI on dip - but sending to lab for better analysis - will call with results.R53.83 Other [id number] Chills (without fever)M54.6 Pain in thoracic spine
[2018-10-28] MEDS ORDERED: methylPREDNISolone 125 MG* 2 ML VIAL IM ONE (21:40)
[2018-10-28 21:43] VITALS: BP 155/75
--- NOTE | 2018-10-28 21:48 | UC ---
Asthma HPI - HPI Summary HPI Summary: Started coughing yesterday. Dry cough without congestion or sore throat. No H/O asthma. Started SOB and wheezing earlier today. - History of Current Complaint Stated Complaint: shortness of breath Time Seen by Provider: 10/28/18 21:34 Hx Obtained From: Patient Hx Last Menstrual Period: HAS AN IUD, DOES NOT HAVE REG PERIODS ?: No Onset/Duration: Sudden Onset, Lasting Days - 2, Worse Since - today Timing: Constant Initial Severity: Mild Current Severity: Severe Location/Character: Cough (Nonproductive) Aggravating Factor(s): Nothing Alleviating Factor(s): Nothing Associated Signs and Symptoms: Positive: URI, Shortness of Breath - Risk Factors Status Asthmaticus Risk Factors: Negative - Allergy/Home Medications Allergies/Adverse Reactions: Allergies Allergy/AdvReac Type Severity Reaction Status Date / Time Penicillins Allergy Unknown Unknown Verified 10/28/18 21:33 Reaction Details Home Medications: Home Medications Bp Med.?Name 1 tab PO DAILY 10/28/18 [History] PMH/Surg Hx/FS Hx/Imm Hx Endocrine History: Thyroid Disease Cardiovascular History: Hypertension - Surgical History Surgical History: Yes Surgery Procedure, Year, and Place: c section 1997 - Family History Known Family History: Positive: Hypertension, Diabetes - Social History Occupation: Employed Full-time Lives: With Family Alcohol Use: Rare Substance Use Type: None Smoking Status (MU): Light Every Day Tobacco Smoker Amount Used/How Often: 1 CIG A DAY Have You Smoked in the Last Year: Yes Cessation Counseling: Patient Advised to Stop - Immunization History Most Recent Influenza Vaccination: august 2015 Review of Systems All Other Systems Reviewed And Are Negative: Yes Respiratory: Positive: Shortness Of Breath, Cough Is Patient Immunocompromised?: No Asthma Course/Dx - Differential Dx/Diagnosis Differential Diagnosis/HQI/PQRI: Acute Asthma, CHF, Pneumonia, Reactive Airway Disease Provider Diagnosis: Bronchospasm, acute Discharge - Sign-Out/Discharge Documenting (check all that apply): Patient Departure All imaging exams completed and their final reports reviewed: No Studies - Discharge Plan Condition: Stable Disposition: HOME Prescriptions: predniSONE TAB* [Deltasone 20 MG TAB*] 60 mg PO DAILY #18 tab Patient Education Materials: Bronchospasm (ED), Prednisone (By mouth), How to Use a Metered-Dose Inhaler and a Spacer (ED) Referrals: Aly Calvin MD [Primary Care Provider] - - Billing Disposition and Condition Condition: STABLE Disposition: Home
[2018-10-28] MEDS ORDERED: Albuterol HFA INHALER* 8 gm MDI INH ONE (21:49)
== END 2018-10-28 22:06 | disposition home or self-care (01) ==
LOC: UCCORT 21:32
DX: J98.01 Acute bronchospasm (principal); Z88.0 Allergy status to penicillin
CPT/HCPCS: 96372; 99213; A9270-GY; G0463; J2930